=== PATIENT | female | born 1960 | race Two or more races ===

== ENCOUNTER 2023-06-26 09:50 | Outpatient (AMB) | payer OTHER, SELFPAY ==
[2023-06-26 10:04] VITALS: BP 130/70; BMI 26.8
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
== END 2023-06-26 11:19 | disposition home or self-care (01) ==
PROVIDERS: PCP Internal Medicine; Visit Provider Nurse Practitioner Family
DX: R51.9 Headache, unspecified (principal); R51.0 Headache with orthostatic component, not elsewhere classified; H93.19 Tinnitus, unspecified ear; H53.2 Diplopia; G40.109 Localization-related (focal) (partial) symptomatic epilepsy and epileptic syndromes with simple partial seizures, not intractable, without status epilepticus; G47.9 Sleep disorder, unspecified; G25.81 Restless legs syndrome; R53.83 Other fatigue; R06.83 Snoring; R06.81 Apnea, not elsewhere classified
CPT/HCPCS: 99204

== ENCOUNTER → 2023-06-26 09:50 | Outpatient (BNVA) | payer OTHER, SELFPAY | PROVIDERS: PCP Internal Medicine; Visit Provider Nurse Practitioner Family | DX: G40.109 Localization-related (focal) (partial) symptomatic epilepsy and epileptic syndromes with simple partial seizures, not intractable, without status epilepticus (principal); R51.0 Headache with orthostatic component, not elsewhere classified; H93.19 Tinnitus, unspecified ear; H53.2 Diplopia; G47.9 Sleep disorder, unspecified; G25.81 Restless legs syndrome; R53.83 Other fatigue; R06.83 Snoring; R06.81 Apnea, not elsewhere classified | CPT/HCPCS: 99202 ==

== ENCOUNTER → 2023-09-10 14:13 | Outpatient (REF) | payer OTHER, SELFPAY | LOC: HO.SL 14:13 | PROVIDERS: PCP Internal Medicine; Visit Provider Nurse Practitioner Family | DX: R06.83 Snoring (principal); G25.81 Restless legs syndrome; R53.83 Other fatigue; R40.0 Somnolence; R06.81 Apnea, not elsewhere classified | CPT/HCPCS: 95806 ==

== ENCOUNTER → 2023-09-10 14:38 | Outpatient (BNV) | payer OTHER, SELFPAY | PROVIDERS: PCP Internal Medicine; Visit Provider Psychiatry & Neurology Neurology | DX: R06.83 Snoring (principal) | CPT/HCPCS: 95806 ==

== ENCOUNTER 2023-09-16 09:16 | Outpatient (REF) | payer OTHER, SELFPAY ==
--- NOTE | ~2023-09-16 | MR_ITS ---
EXAMINATION: MR BRAIN WITH AND WITHOUT CONTRAST CLINICAL INFORMATION: Headache, double vision, new onset clicking in the bilateral ears COMPARISON: None. TECHNIQUE: MRI of the brain was obtained using routine sequences before and following administration of intravenous contrast. A total of 6.5 mL of Gadavist was administered intravenously. FINDINGS: No acute infarct. The GRE sequence is without susceptibility artifact to suggest acute or chronic blood products. No extra-axial fluid collection. The ventricles and sulci are normal in size and configuration without significant volume loss or hydrocephalus. A few scattered T2 FLAIR hyperintense foci in the subcortical and periventricular white matter, nonspecific but presumably mild chronic microangiopathy. Linear enhancement in the left parietal subcortical white matter presumably reflective of a developmental venous anomaly. No significant mass effect or herniation pattern. The intracranial arterial flow voids are preserved. Partially empty sella. Suspected small bilateral petrous apex cephaloceles and suggestion of distal transverse sinus stenosis bilaterally. The orbits are grossly unremarkable. Mild to moderate ethmoid air cell mucosal thickening. No mastoid effusion. Normal marrow signal. The bilateral temporomandibular joints appear grossly unremarkable. Partially imaged cervical spondylosis, with multilevel disc osteophytes/protrusions at C3-C4, C4-C5, and C5-C6 contributing to spinal canal narrowing and suspected mass effect along the ventral cord. MR/MR head/brain wo/w con IMPRESSION: 1. No acute intracranial abnormality. 2. Partially empty sella, suspected small bilateral petrous apex cephaloceles, and suggestion of distal transverse sinus stenosis bilaterally, the latter which is poorly assessed on this examination and would be better evaluated on 3D T1-weighted postcontrast sequences and/or MR venogram as clinically warranted. Findings can be correlated clinically for idiopathic intracranial hypertension/pseudotumor cerebri.
[2023-09-16] MEDS: gadobutroL 7.5 ML VIAL IVPUSH (10:17)
== END 2023-09-16 09:17 | disposition home or self-care (01) ==
LOC: HO.MRI 09:16
PROVIDERS: PCP Internal Medicine; Visit Provider Nurse Practitioner Family
DX: R51.0 Headache with orthostatic component, not elsewhere classified (principal)
CPT/HCPCS: 70553; A9585

== ENCOUNTER 2023-09-25 08:38 | Outpatient (AMB) | payer OTHER, SELFPAY ==
--- NOTE | 2023-09-25 09:53 | A.OFFVIS_ITS ---
Vital Signs 09/25/23 09:54 Height 5 ft 1 in Weight 136 lb 8 oz BMI 25.8 BP 114/72 Blood Pressure Location Rt brachial Position Sitting Pulse 89 Pulse Source Pulse Oximeter Pulse Oximetry (%) 99 Oxygen Delivery Method Room Air Intake Visit Reasons: 3 mo follow up- Confirmed Intake Note: Patient presents for 3 month follow up. patient has been having simple little headaches but she feels it's when her sugars are low. Allergies No Known Allergies Allergy (Verified 09/25/23 09:56) Medication List - Last Reconciled 10/28/23 by LOR Montes albuterol sulfate 90 mcg/actuation inhalation cetirizine 10 mg PO DAILY fluticasone propionate 110 mcg/actuation (Flovent HFA) inhalation lancets (FreeStyle Lancets) As directed lovastatin 40 mg PO DAILY magnesium oxide 400 mg PO BEDTIME 30 days metformin 500 mg PO BID naproxen 500 mg PO BID PRN 30 days MDD 2 tabs riboflavin (vitamin B2) 400 mg PO DAILY 30 days topiramate 25 - 50 mg (1 - 2 x 25 mg) PO BID 30 days tramadol 50 mg PO BID PRN HPI Comments Details: 63-yr-old female presents for f/u visit. Pt reports she had Covid-19 in May. Her 1st s/s was syncope- fell and sustained nasal Fx and tooth Fx. Some of her upper teth have been removed. She is on a soft diet. Has lost apporx 10 lbs. She is waiting to receive dentures. Overall she is feeling better, but having decreased energy. Started B2 and Mag- which seem to help. Does have blurry vision during headaches. She is now noticing headaches when she is late taking her metformin and her BG is > 140. She may wait to take her metformin, if she wakes up shaky). Once she takes metformin, the headache subsides. Other using Naproxen 3-4 x's per month for headache, which helps. Baseline headache characteristics: [id number], Throbbing bilateral forehead, temporal, retro-orbital, hagen pad, occipital, neck pain a/w Milder headache is more often in the temples and is associated with photophobia and phonophobia but not nausea or vomiting. More moderate headache is associated with photophobia, phonophobia, dizziness, blurry vision, difficulty concentrating, red eye associated with whooshing tinnitus when lying down. 09/13/23, HST: AHI 3.1/hr, O2 naidr 82 % (SpO2 < 90% x's 5.4 min, < 88% x's 1 min, avergae SpO2 93%). 09/16/23, MR/MR head/brain wo/w con: IMPRESSION: 1. No acute intracranial abnormality. 2. Partially empty sella, suspected small bilateral petrous apex cephaloceles, and suggestion of distal transverse sinus stenosis bilaterally, the latter which is poorly assessed on this examination and would be better evaluated on 3D T1-weighted postcontrast sequences and/or MR venogram as clinically warranted. Findings can be correlated clinically for idiopathic intracranial hypertension/pseudotumor cerebri. PFSH Surgical History H/O tubal ligation Family History Mother Diabetes HTN (hypertension) Hyperlipidemia Father Stroke Social History Alcohol intake: never Patient Tobacco Use Status: Never used Tobacco Physical Exam Vital Signs: Last Vital Signs Pulse 89 09/25/23 09:54 BP 114/72 09/25/23 09:54 Pulse Ox 99 09/25/23 09:54 Oxygen Delivery Method Room Air 09/25/23 09:54 BMI result Body Mass Index 25.8 Const General: cooperative and no acute distress Orientation/consciousness: patient oriented x3 Resp Effort & Inspection: normal respiratory effort and able to speak in complete sentences Neuro General: patient oriented x3 Cranial nerves: Yes CN's II-XII intact bilaterally Cognition (Neuro): normal cognition Psych Appearance: grossly normal Mental Status: mental status grossly normal Speech and movement: Normal speech and movement present Affect: normal affect Attitude: cooperative Assessment & Plan Assessment & Plan (1) Migraine without aura: Code(s): G43.009 - Migraine without aura, not intractable, without status migrainosus Category: Medical (2) Diabetes mellitus, type II: Code(s): E11.9 - Type 2 diabetes mellitus without complications Category: Medical (3) Unintentional weight loss: Code(s): R63.4 - Abnormal weight loss Category: Medical Plan Reviewed brain MRI w/wo- No acute abnormalities. However, signs suggestive of IIH: partially empty sella, suspected small bilateral petrous apex cephaloceles, and suggestion of distal transverse sinus stenosis bilaterally, Pt does haveh/o IIH Pt advised to undergo brain MRV w/wo- to assess for transverse sinus stenosis. Advised pt to undergo LP to assess OP- pt declined LP, as in the past has caused low pressure LYNN Pt previously did not tolerate daimox Restart topiramate- now states, she did not not tolerate it, but only stopped it as she thought she was on too many pain meds Explained that topiramate is to reduce IIH and to reduce risk for irreversible vision loss Will request recent notes from [facility] and [facility] Future considerations: LP and CSF studies. Reviewed HST- no evidence for sleep apnea. For overall headache management: Continue to optimizegood self-care, including but not limited to maintaining a healthy diet, adequate fluid intake, adequate sleep, and engaging in regular physical activity. Will initiate an order for daily MVI and Glucerna supplement d/t recent weight loss r/t loss of front teeth- as not eating is contributing to her migraine burden. For headache triggers: Track headaches, especially after any treatment regimen changes. Migraine [employer] is one of many headache tracking apps. For acute headache treatment: Discussed importance of taking acute medications at the first sign of headache, however stressed importance of avoiding acute medication overuse (especially w ith combined headache medications). May continue naproxen 500 mg b.i.d. as needed Previous acute migraine medication trials: None other Acute migraine medication contraindications: None at this time For headache prevention medication: Riboflavin 400mg qam Magnesium 400mg qhs Previous migraine prevention medication trials: Gabapentin: Was not effective after greater than 8 weeks. Migraine prevention medication contraindications: Beta-blockers due to asthma diagnosis. Pt to follow-up in 3 months or sooner prn. Coding Level of Care Code Est Pt Level 4 (60690) Diagnoses Migraine without aura G43.009 Diabetes mellitus, type II E11.9 Unintentional weight loss R63.4
[2023-09-25 09:54] VITALS: BP 114/72; PULSE 89; O2SAT 99; BMI 25.8
== END 2023-09-25 10:28 | disposition home or self-care (01) ==
PROVIDERS: PCP Internal Medicine; Visit Provider Nurse Practitioner Family
DX: G43.009 Migraine without aura, not intractable, without status migrainosus (principal); E11.9 Type 2 diabetes mellitus without complications; R63.4 Abnormal weight loss
CPT/HCPCS: 99214

== ENCOUNTER → 2023-09-25 08:38 | Outpatient (BNVA) | payer OTHER, SELFPAY | PROVIDERS: PCP Internal Medicine; Visit Provider Nurse Practitioner Family | DX: G43.009 Migraine without aura, not intractable, without status migrainosus (principal); E11.9 Type 2 diabetes mellitus without complications; R63.4 Abnormal weight loss | CPT/HCPCS: 99212 ==

== ENCOUNTER → 2024-03-03 10:08 | Outpatient (BNV) | payer OTHER, SELFPAY | PROVIDERS: PCP Internal Medicine; Visit Provider Radiology Diagnostic Radiology | DX: R51.0 Headache with orthostatic component, not elsewhere classified (principal) | CPT/HCPCS: 70546 ==

== ENCOUNTER 2024-03-03 10:12 | Outpatient (REF) | payer OTHER, SELFPAY ==
--- NOTE | ~2024-03-03 | MR_ITS ---
EXAMINATION: MRV the brain with contrast.. CLINICAL INFORMATION: Headache with orthostatic component. TECHNIQUE: MRV brain protocol with contrast. Coronal 2-D [id number]. Sagittal twist. Total of 10 cc of gadolinium given IV without reported immediate complications COMPARISON: No priors. Correlated to MRI brain dated September 16, 2023. FINDINGS: Superior sagittal sinus, transverse and sigmoid sinuses and jugular bulbs, internal cerebral veins, vein of Wild, straight sinus demonstrated no flow signal abnormality, intraluminal filling defects or focal stenosis. Dominant right transverse and sigmoid sinuses and jugular bulbs. Dominant right internal jugular vein. MR/MR venography head wo/w con IMPRESSION: No main cerebral venous sinus thrombosis. Negative exam. Electronically signed by: Wiliam Rodriguez MD 04/08/2024 07:41 AM EDT
[2024-03-03] MEDS: gadobutroL 10 ML VIAL IVPUSH (10:53)
== END 2024-03-03 10:13 | disposition home or self-care (01) ==
LOC: HO.MRI 10:12
PROVIDERS: PCP Internal Medicine; Visit Provider Nurse Practitioner Family
DX: G93.2 Benign intracranial hypertension (principal); R51.0 Headache with orthostatic component, not elsewhere classified
CPT/HCPCS: 70546; A9585

== ENCOUNTER 2024-03-31 09:03 | Outpatient (AMB) | payer OTHER, SELFPAY ==
--- NOTE | 2024-03-31 09:23 | A.OFFVIS_ITS ---
Vital Signs 03/31/24 09:24 Height 5 ft 1 in Weight 125 lb BMI 23.6 BP 126/82 Blood Pressure Location Rt brachial Position Sitting Intake Visit Reasons: Follow up Intake Note: Patient presents for follow up Allergies No Known Allergies Allergy (Verified 03/31/24 09:27) Medication List - Last Reconciled 03/31/24 by LOR Montes albuterol sulfate 90 mcg/actuation inhalation cetirizine 10 mg PO DAILY fluticasone propionate 110 mcg/actuation (Flovent HFA) inhalation lancets (FreeStyle Lancets) As directed lovastatin 40 mg PO DAILY magnesium oxide 400 mg PO BEDTIME 30 days metformin 500 mg PO BID nb-eoj-laphf-calcium carb-K1 400 mcg-500 mg calcium-20 mcg (One Daily Women 50 Plus(Vit K)) 1 tab PO DAILY 30 days naproxen 500 mg PO BID PRN 30 days MDD 2 tabs nut.tx.gluc.intol,lac-free,soy (Glucerna Hunger Smart oral liquid) Drink one 10 ounce bottle orally BID; 30 days riboflavin (vitamin B2) 400 mg PO DAILY 30 days topiramate 25 - 50 mg (1 - 2 x 25 mg) PO BID 30 days tramadol 50 mg PO BID PRN HPI Comments Details: 63-yr-old female presents for f/u visit. Overall pt reports she is feeling better, but having decreased energy. Family is trying to encourage her to come out of the house and spend time with her family. She is trying to eat better, but it is difficult to maintain her weight and her blood sugars. Glucerna helps- but can have difficulty picking it up d/t insurance coverage- asks that we fax the order to [facility]. Pt's vision is stable. Eye exam did not show papilledema. Denies tinnitus, positional headache. Pt states her headaches are better overall. Now having 1-2 headache days per week- often triggered by stress- often due to her Compliant w/ B2 and Mag. Taking Topiramate 50mg qam, and extra 25-50mg qhs and Naproxen when she has a headache. Baseline headache characteristics: [id number], Throbbing bilateral forehead, temporal, retro-orbital, hagen pad, occipital, neck pain a/w Milder headache is more often in the temples and is associated with photophobia and phonophobia but not nausea or vomiting. More moderate headache is associated with photophobia, phonophobia, dizziness, blurry vision, difficulty concentrating, red eye associated with whooshing tinnitus when lying down. Previous work-up: 09/13/23, HST: AHI 3.1/hr, O2 naidr 82 % (SpO2 < 90% x's 5.4 min, < 88% x's 1 min, average SpO2 93%). 09/16/23, MR/MR head/brain wo/w con: IMPRESSION: 1. No acute intracranial abnormality. 2. Partially empty sella, suspected small bilateral petrous apex cephaloceles, and suggestion of distal transverse sinus stenosis bilaterally, the latter which is poorly assessed on this examination and would be better evaluated on 3D T1-weighted postcontrast sequences and/or MR venogram as clinically warranted. Findings can be correlated clinically for idiopathic intracranial hypertension/pseudotumor cerebri. PFSH Surgical History H/O tubal ligation Family History Mother Diabetes HTN (hypertension) Hyperlipidemia Father Stroke Social History Alcohol intake: never Patient Tobacco Use Status: Never used Tobacco Physical Exam Vital Signs: Last Vital Signs BP 126/82 03/31/24 09:24 BMI result Body Mass Index 23.6 Const General: cooperative and no acute distress Orientation/consciousness: patient oriented x3 Resp Effort & Inspection: normal respiratory effort and able to speak in complete sentences Neuro General: patient oriented x3 Cranial nerves: Yes CN's II-XII intact bilaterally Cognition (Neuro): normal cognition Psych Appearance: grossly normal Mental Status: mental status grossly normal Speech and movement: Normal speech and movement present Affect: normal affect Attitude: cooperative Assessment & Plan Assessment & Plan (1) Migraine without aura: Code(s): G43.009 - Migraine without aura, not intractable, without status migrainosus Category: Medical (2) Unintentional weight loss: Code(s): R63.4 - Abnormal weight loss Category: Medical Plan For h/o IIH: Review Brain MRV when available. Brain MRI w/wo- No acute abnormalities. However, signs suggestive of IIH: partially empty sella, suspected small bilateral petrous apex cephaloceles, and suggestion of distal transverse sinus stenosis bilaterally, Pt does have h/o IIH Previously advised pt to undergo LP to assess OP- pt declined LP, as in the past has caused low pressure LYNN. will revisit upon review of MRV. Pt previously did not tolerate daimox Continue topiramate 50mg qam and prn 50mg qhs. Reviewed [facility]- no s/s papilledema. HST- no evidence for sleep apnea. Future considerations: LP and CSF studies. For overall headache management: Continue to optimize good self-care, including but not limited to maintaining a healthy diet, adequate fluid intake, adequate sleep, and engaging in regular physical activity. Advised to continue daily MVI and Glucerna supplement d/t recent weight loss r/t loss of front teeth- as not eating contributes to her migraine burden. Pt asks order be faxed to- [facility], . For headache triggers: Track headaches, especially after any treatment regimen changes. Migraine [employer] is one of many headache tracking apps. For acute headache treatment: Discussed importance of taking acute medications at the first sign of headache, however stressed importance of avoiding acute medication overuse (especially with combined headache medications). May continue naproxen 500 mg b.i.d. as needed Previous acute migraine medication trials: None other Acute migraine medication contraindications: None at this time For headache prevention medication: Riboflavin 400mg qam Magnesium 400mg qhs Continue topiramate 50mg qam and prn 50mg qhs. Previous migraine prevention medication trials: Gabapentin: Was not effective after greater than 8 weeks. Migraine prevention medication contraindications: Beta-blockers due to asthma diagnosis. Pt to follow-up in 6 months or sooner prn. Medications: Refilled nut.tx.gluc.intol,lac-free,soy (Glucerna Hunger Smart oral liquid) Drink one 10 ounce bottle orally BID; 30 days 20,400 mL 6RF E11.9 - Type 2 diabetes mellitus without complications, R63.4 - Abnormal weight loss nut.tx.gluc.intol,lac-free,soy (Glucerna Hunger Smart oral liquid) Drink one 10 ounce bottle orally BID; 20,400 mL 6RF 30 days E11.9 - Type 2 diabetes mellitus without complications, R63.4 - Abnormal weight loss riboflavin (vitamin B2) 400 mg PO DAILY 30 tabs 6RF 30 days topiramate 25 - 50 mg (1 - 2 x 25 mg) PO BID 120 tabs 3RF 30 days G93.2 - Benign intracranial hypertension magnesium oxide may hold for loose stools 400 mg PO BEDTIME 30 tabs 6RF 30 days Coding Level of Care Code Est Pt Level 4 (12141) Diagnoses Migraine without aura G43.009 Unintentional weight loss R63.4
[2024-03-31 09:24] VITALS: BP 126/82; BMI 23.6
== END 2024-03-31 10:18 | disposition home or self-care (01) ==
PROVIDERS: PCP Internal Medicine; Visit Provider Nurse Practitioner Family
DX: G43.009 Migraine without aura, not intractable, without status migrainosus (principal); R63.4 Abnormal weight loss
CPT/HCPCS: 99214

== ENCOUNTER → 2024-03-31 09:03 | Outpatient (BNVA) | payer OTHER, SELFPAY | PROVIDERS: PCP Internal Medicine; Visit Provider Nurse Practitioner Family | DX: G43.009 Migraine without aura, not intractable, without status migrainosus (principal); R63.4 Abnormal weight loss | CPT/HCPCS: 99212 ==

== ENCOUNTER 2024-10-21 09:23 | Outpatient (AMB) | payer OTHER, SELFPAY ==
--- OUTSIDE RECORDS SUMMARY | 2024-10-21 09:58 | XMS_ITS | Clinical Summary ---
Author Organization [facility] Address [address] [place] [phone] Phone Care Team Providers Care [employer] Name Role Phone Simona Finney MD Primary Care Provider [phone] Allergies Active Allergy Reactions Criticality Noted Date Comments Budesonide-Formoterol 10/05/2015 Medications cetirizine (ZyrTEC) 10 mg tablet Take 1 tablet (10 mg total) by mouth 1 (one) time each day. 02/23/20 24 Active lovastatin (MEVACOR) 40 mg tablet TAKE 1 TABLET BY MOUTH AT BEDTIME 02/23/20 24 Active topiramate (TOPAMAX) 25 mg tablet TAKE 1-2 TABLETS BY MOUTH TWICE A DAY 10/03/19 24 Active fluticasone HFA (FLOVENT HFA) 110 mcg/actuation inhaler Inhale 1 Puff into the lungs 2 times daily for 180 days. 10/17/19 24 Active multivitamin (MULTIPLE VITAMINS ORAL) Take by mouth. Active blood sugar diagnostic (FreeStyle Lite Strips) test strip Use to test blood sugar twice a day 100 each 2 04/22/20 24 Active blood-glucose meter kit Use twice daily to test blood sugar 1 each 04/22/20 24 Active fluticasone propionate (FLONASE) 50 mcg/actuation nasal spray Administer 2 sprays into each nostril 1 (one) time each day. Shake gently. Before first use, prime pump. After use, clean tip and replace cap. 16 g 5 06/07/20 24 Active naproxen (NAPROSYN) 500 mg tablet Take 1 tablet (500 mg total) by mouth 1 (one) time each day. Active traMADoL (ULTRAM) 50 mg tablet Take by mouth 1 (one) time each day. Active magnesium oxide (MAG-OX) 400 mg magnesium tablet Take 1 tablet (400 mg total) by mouth 1 (one) time each day. Active riboflavin (VITAMIN B2) 50 mg tablet tablet Take 1 tablet (50 mg total) by mouth 1 (one) time each day. Active metFORMIN (GLUCOPHAGE) 500 mg tablet Take 1 Tablet by mouth 2 times daily (with meals). 180 tablet 08/21/19 25 Active lancets lancets Use to test blood sugar twice daily 300 each 09/21/19 25 Active albuterol HFA (PROAIR HFA ; PROVENTIL HFA ; VENTOLIN HFA) 90 mcg/actuation inhaler INHALE 2 PUFFS INTO THE LUNGS EVERY 4 HOURS NEEDED FOR COUGH OR WHEEZING 8.5 g 2 10/21/19 25 Active albuterol HFA (PROAIR HFA ; PROVENTIL HFA ; VENTOLIN HFA) 90 mcg/actuation inhaler INHALE 2 PUFFS INTO THE LUNGS EVERY 4 HOURS NEEDED FOR COUGH OR WHEEZING 8.5 g 09/02/19 25 025 Discontinued Active Problems Problem Noted Date Diagnosed Date Migraine 12/25/2016 Overview (03/31/2024): Saw Dr. Wade on 12/23/16, MRI and MRV of brain at [facility] in September 2013 showed mild nonspecific white matter changes, MRV was okay. Continue naproxen for migraine. Recurrent major depressive disorder ([facility] V24 ) 05/10/2016 Overview (03/31/2024): Declines medication, sees counselor Diabetes mellitus without co mplication ([facility] V24, [facility] V28) 07/21/2013 Assessment & Plan (04/29/2024 10:14 AM EST): Diabetic diet discussed. Will monitor A1c. For now continue metformin. Orders: Hemoglobin A1c; Future Asthma 02/18/2013 Arthralgia 10/06/2012 Overview (03/31/2024): Dr el rheum Backache 10/06/2012 GERD (gastroesophageal reflux disease) 3 Hyperlipidemia 10/06/2012 Overview (03/31/2024): Previous [facility] medical Assessment & Plan (04/29/2024 10:14 AM EST): Follow low-cholesterol diet. Continue lovastatin. Pseudotumor cerebri 10/06/2012 Overview (03/31/2024): [facility], pseudotumor cerebri controoled on topamax. No retinopathy Saw Dr. Wade on 12/23/16, MRI and MRV of brain at [facility] in September 2013 showed mild nonspecific white matter changes, MRV was okay. Continue naproxen for migraine. Dr navarrete-neuro Dr beard eyes normal mri Seasonal allergies 10/06/2012 Encounters Date Type Department Care Team Description 08/09/2024 10:45 AM EST Office Visit [facility] Hematology Oncology [address] [place] [address] Carol Meraz PA Thrombocytosis (Primary Dx) from Last 3 Months Immunizations Name Administration Dates Next Due Influenza Quadravalent, MDCK , 0.5ml, preservative free (Flucelvax) 6mo and older 03/12/2023,04/05/2022,04/19/2020,08/03 Influenza trivalent, MDCK, 0 .5mL, preservative free (Flucelvax) 6mo and older 04/29/2024 MMR, measles mumps and rubel la Live (Priorix; M-M-R II) 12mo and older 04/28/1997 PPD Test 10/02/2011 Pfizer SARS-CoV-2 COVID-19, mRNA, LNP-S, preservative free 03/02/2021,02/09/2021 Pneumococcal polysaccharide 23 valent (Pneumovax 23) 2yo and older 12/02/2013 Tdap Tetanus diptheria acell ular pertussis (Boostrix; Adacel) 7yo and older 10/17/2023 Surgical History Surgery Date Site/Laterality Comments COLONOSCOPY 01/17/13 PROCEDURE: HISTORICAL COLONOSCOPY; COMMENT: adenoma; repeat in 5 yrs BREAST BIOPSY Right PROCEDURE: BX BREAST; PERC NEEDLE CORE W/IMAG GUID; COMMENT: benign LIPOMA RESECTION PROCEDURE: SKIN TISSUE EXCISION(LIPOMA) Medical History Medical History Date Comments Type II or unspecified type diabetes mellitus with unspecified complication, not stated as uncontrolled DX:Type II or unspecified t ype diabetes mellitus with unspecified complication, not stated as uncontrolled Esophageal reflux DX:Esophageal reflux Recurrent major depressive d isorder ([facility]/HCC V24) 05/10/2016 DX:Recurrent major depressiv e disorder (HCC) Migraine 12/25/2016 DX:Migraine Hyperlipidemia 10/06/2012 DX:Hyperlipidemi a; COMMENT: Previous [facility] Pseudotumor cerebri 10/06/2012 DX:Pseudotum or cerebri; COMMENT: Melvin Hua from [facility], pseudotumor cerebri controoled on topamax. No retinopathy Saw Dr. Wade on 12/23/16, MRI and MRV of brain at [facility] in September 2013 showed mild nonspecific white matter changes, MRV was okay. Continue naproxen for migraine. Dr navarrete-neuro Dr beard eyes normal mri Asthma 02/18/2013 DX:Asthma Depression Prolapsed uterus Family History Medical History Relation Name Comments Diabetes Brother 5 arthritis, asth ma Stroke Brother 5 Heart attack Father CAD, diabetes, HTN Cataracts Mother Dementia Heart attack Mother Diabetes Sister 5 Blindness Neg Hx glaucoma, macul ar degeneration, strabismus Breast cancer Neg Hx Colon cancer Neg Hx Ovarian cancer Neg Hx Relation Name Status Comments Brother 5 Father Mother Sister 5 Alive Social History Tobacco Use Types Packs/Day Years Used Date Smoking Tobacco: Former Cigarettes Q uit: 06/09/1989 Smokeless Tobacco: Never Tobacco Cessation:Counseling Given: Not Answered Alcohol Use Standard Drinks/Week Comments No 0 (1 standard drink = 0.6 oz pur e alcohol) Comments Unknown Sex and Gender Information Value Date Recorded Sex Assigned at Not on file Legal Sex Female 2:19 AM EST Gender Identity Not on file Sexual Orientation Not on file Obstetrics History Last Filed Vital Signs Vital Sign Reading Time Taken Comments Blood Pressure 136/46 08/09/2024 10:22 AM EST Pulse 90 08/09/2024 10:22 AM EST Temperature 36.7 ??C (98 ??F) 08/09/2024 10:22 AM EST Respiratory Rate - - Oxygen Saturation 99% 08/09/2024 10:22 AM EST Inhaled Oxygen Concentration - - Weight 59 kg (130 lb) 08/09/2024 10:22 AM EST Height 154.9 cm (5' 1 ) 07/08/2024 11:04 AM EST Body Mass Index 24.56 07/08/2024 11:04 AM EST Plan of Treatment Upcoming Encounters Date Type Department Care Team (Late st Contact Info) Description 10/22/2024 1:45 PM EDT Appointment [facility] [address] [place] [phone] 12/16/2024 10:00 AM EDT Office Visit Urogynecology - [address] [phone] Shirley Patiño MD [address] [place] [address] [address] [place] [address] 02/15/2025 1:00 PM EDT Office Visit Internal Medicine - [facility] [address] [place] [phone] Simnoa Finney MD [address] [place] [address] Health Maintenance Due Date Last Done Comments Zoster Vaccines (1 of 2) 2009 Pneumococcal Vaccine: 50+ Years (2 of 2 - PCV) 12/02/2014 12/02/2013 Pneumococcal Vaccine: Pediatrics (0 to 5 Years) and At-Risk Patients (6 to 64 Years) (2 of 2 - PCV) 12/02/2014 12/02/2013 RSV Immunization Adult Patients (1 - Risk 60-74 years 1-dose series) 2019 Medicare Annual Wellness Visit 05/18/2022 Osteoporosis Screening (Bone Density Screening) 05/18/2022 Social Influencers of Health Screening 05/18/2022 Diabetes: Annual Urine Albumin-Creatinine Ratio (uACR) 05/19/2022 04/12/2021 COVID-19 Vaccine ( season) 2024 03/02/2021, 02/09/2021 Falls Risk Assessment 2024 Depression Screening 10/16/2024 10/17/2023 Diabetes: Annual Foot Exam 10/16/2024 10/17/2023 Diabetes: Blood Sugar Control Test (HGBA1C) 11/02/2024 05/05/2024, 10/17/2023, 10/17/2023 Colorectal Cancer Screening: Colonoscopy 01/17/2025 01/18/2020 Diabetes: Annual Retina Eye Exam 01/20/2025 01/21/2024 Breast Cancer Screening 04/17/2025 04/17/20 23, 04/17/2023, 11/22/2021, Additional history exists Diabetes: Annual GFR (Glomerular Filtration Rate) 05/05/2025 05/05/2024, 10/17/2023, 10/17/2023 Cervical Cancer Screening: HPV 11/20/2026 11/20/2021 Cholesterol Screening (Lipid Panel) 10/16/2028 10/17/2023, 10/17/2023 DTaP,Tdap,and Td Vaccines (2 - Td or Tdap) 10/16/2033 10/17/2023 MMR Vaccines Aged Out 04/28/1997 No longer eligi ble based on patient's age to complete this topic Hepatitis C Screening Completed 02/18/2013 Influenza Vaccine Completed 04/29/2024, , 04/05/2022, Additional history exists HIB Vaccines Aged Out No longer eligi ble based on patient's age to complete this topic HPV Vaccines Aged Out No longer eligi ble based on patient's age to complete this topic Hepatitis A Vaccines Aged Out No long er eligible based on patient's age to complete this topic Hepatitis B Vaccines Aged Out No long er eligible based on patient's age to complete this topic IPV Vaccines Aged Out No longer eligi ble based on patient's age to complete this topic Meningococcal ACWY Vaccine Aged Out N o longer eligible based on patient's age to complete this topic Meningococcal B Vaccine Aged Out No l onger eligible based on patient's age to complete this topic RSV Immunization Patients Under 20 months Aged Out No longer eligible based on patient's age to complete this topic Varicella Vaccines Aged Out No longer eligible based on patient's age to complete this topic Procedures Procedure Name Priority Date/Time Associated Diagnosis Comments THYROXINE FREE Routine 08/09/2024 10:58 AM EST Empty sella ([facility] V24) THYROID STIMULATING HORMONE Routine 08/09/2024 10:58 AM EST Empty sella ([facility] V24) CORTISOL Routine 08/09/2024 10:58 AM EST Empty sella ([facility] V24) INSULIN-LIKE GROWTH FACTOR Routine 08/09/2024 10:58 AM EST Empty sella ([facility] V24) PROLACTIN Routine 08/09/2024 10:58 AM EST Empty sella ([facility] V24) LUTEINIZING HORMONE Routine 08/09/2024 1 0:58 AM EST Empty sella ([facility] V24) FOLLICLE STIMULATING HORMONE Routine 08/09/2024 10:58 AM EST Empty sella ([facility] V24) COMPREHENSIVE METABOLIC PANEL Routine 05/05/2024 9:05 AM EST Weight loss HEMOGLOBIN A1C Routine 05/05/2024 9:05 AM EST Diabetes mellitus without complication ([facility] V24, [facility] V28) DIABETES EYE EXAM Routine 01/21/2024 DEPRESSION SCREENING Routine 10/17/2023 LIPID PANEL Routine 10/17/2023 DIABETES FOOT EXAM Routine 10/17/2023 GEORGE SCREENING DIGITAL Routine 04/17/2023 3:16 PM EST Encounter for screening mammogram for malignant neoplasm of breast HM HPV Routine 11/20/2021 HM URINE ALBUMIN CREATININE RATIO Routine 04/12/2021 HM COLONOSCOPY Routine 01/18/2020 HEPATITIS C SCREENING Routine 02/18/2013 from Last 3 Months or Most Recently Relevant to Health Maintenance Results * Prolactin (08/09/2024 10:58 AM EST) Pathologist [facility] Prolactin 8.00 See Comment ng/mL LAB CHEMISTRY METHOD 08/09/2024 1:36 PM EST [facility] Comment: Prolactin Reference Ranges (ng/mL) ??Non ?2.2 - ??30.3 ? 8.1 - 347.6 ??Postmenopausal 0.7 - ??31.5 Blood Venous blood specimen / Unknown Venipuncture / Unknown 08/09/2024 10:58 AM EST 08/09/2024 12:38 PM EST García Jay MD LAB BLOOD ORDERABLES Final Resul t Performing Organization Address City/State/[facility] Co de Phone Number [facility]) [facility] [address] [place] [address], [place] [phone] * Insulin-like growth factor (08/09/2024 10:58 AM EST) Insulin-like Growth Factor 1 85 57 - 202 ng/mL 08/12/2024 7:37 PM EST [facility] Comment: Test performed at [facility], [address] [place], [place] ??[address] ? [phone] Latoya Lozano MD, PhD - Aircraft Machin[employer] Blood Venous blood specimen / Unknown Venipuncture / Unknown 08/09/2024 10:58 AM EST 08/09/2024 12:38 PM EST García Jay MD LAB BLOOD ORDERABLES Final Resul t [facility] [address] [place] [address] * Thyroid stimulating hormone (08/09/2024 10:58 AM EST) TSH 1.46 0.40 - 4.00 mcIU/mL LAB CHEMISTRY METHOD 08/09/2024 1:15 PM EST [facility] Blood Venous blood specimen / Unknown Venipuncture / Unknown 08/09/2024 10:58 AM EST 08/09/2024 12:38 PM EST us García Jay MD LAB BLOOD ORDERABLES Final Resul t Performing Organization Address [facility] Co de Phone Number [facility] [address] [place] [address], [place] [phone] * Thyroxine free (08/09/2024 10:58 AM EST) Free T4 1.28 0.70 - 1.80 ng/dL LAB CHEMISTRY METHOD 08/09/2024 1:15 PM EST [facility] Blood Venous blood specimen / Unknown Venipuncture / Unknown 08/09/2024 10:58 AM EST 08/09/2024 12:38 PM EST us García Jay MD LAB BLOOD ORDERABLES Final Resul t Performing Organization Address City/[facility]/ZIP Co de Phone Number [facility] [address] [place] [address], [place] [phone] * Luteinizing hormone (08/09/2024 10:58 AM EST) Luteinizing Hormone 31.4 See Comment mIU/mL LAB CHEMISTRY METHOD 08/09/2024 1:36 PM EST [facility] Blood Venous blood specimen / Unknown Venipuncture / Unknown 08/09/2024 10:58 AM EST 08/09/2024 12:38 PM EST Narrative [facility] - 08/09/2024 1:36 PM EST LH REFERENCE RANGES (MIU/ML) FEMALES NORMALLY MENSTRUATING: FOLLICULAR PHASE ??1.9 - 12.8 MIDCYCLE PEAK ?22.8 - 76.1 LUTEAL PHASE ?0.6 - 13.5 POSTMENOPAUSAL: ON HRT ?1.1 - ??52.4 UNTREATED ? 8.6 - ??61.8 García Jay MD LAB BLOOD ORDERABLES Final Resul t Performing Organization Address City/[facility]/ZIP Co de Phone Number [facility] [address] [place] [address], [place] [phone] * Follicle stimulating hormone (08/09/2024 10:58 AM EST) Follicle Stimulating Hormone 89.6 See Comment mIU/mL LAB CHEMISTRY METHOD 08/09/2024 1:36 PM EST [facility] Comment: FSH REFERENCE RANGES (MIU/ML) FEMALES NORMALLY MENSTRUATING: FOLLICULAR PHASE ??2.3 - 12.6 MIDCYCLE PEAK ? 5.2 - 17.5 LUTEAL PHASE ?1.7 - ??9.5 POSTMENOPAUSAL: ON HRT ?5.9 - ??72.8 UNTREATED ?12.7 - 132.2 Blood Venous blood specimen / Unknown Venipuncture / Unknown 08/09/2024 10:58 AM EST 08/09/2024 12:38 PM EST García Jay MD LAB BLOOD ORDERABLES Final Resul t Performing Organization Address City/[facility]/ZIP Co de Phone Number [facility] [address] [place] [address], [place] [phone] * Cortisol (08/09/2024 10:58 AM EST) Cortisol 8.9 mcg/dL LAB CHEMISTRY METHOD 08/09/2024 1:14 PM EST [facility] Blood Venous blood specimen / Unknown Venipuncture / Unknown 08/09/2024 10:58 AM EST 08/09/2024 12:38 PM EST Narrative [facility] - 08/09/2024 1:14 PM EST CORTISOL REFERENCE RANGE ?? 8 AM SPEC: ??5.0-23.0 mcg/dL ?? 4 PM SPEC: ??3.0-16.0 mcg/dL ?? 8 PM SPEC: ??<5.0 mcg/dL García Jay MD LAB BLOOD ORDERABLES Final Resul t Performing Organization Address [facility]/ZIP Co de Phone Number [facility] [address] [place] [address], [place] [phone] * Hemoglobin A1c (05/05/2024 9:05 AM EST) Hemoglobin A1C 5.1 <6.5 % LAB CHEMISTRY METHOD 05/05/2024 9:32 PM EST [facility] Mean Bld Glu Estim. 100 mg/dL LAB CHEMISTRY METHOD 05/05/2024 9:32 PM EST [facility] Blood Venous blood specimen / Unknown Venipuncture / Unknown 05/05/2024 9:05 AM EST 05/05/2024 9:05 AM EST Simona Finney MD LAB BLOOD ORDERABLES Alyson l Result [facility] [address] [place] [address], [place] [phone] * (ABNORMAL) Comprehensive metabolic panel (05/05/2024 9:05 AM EST) Sodium 142 133 - 145 mmol/L LAB CHEMISTRY METHOD 05/05/2024 3:02 PM [facility] Potassium 4.2 3.5 - 5.5 mmol/L LAB CHEMISTRY METHOD 05/05/2024 3:02 PM [facility] Chloride 109 96 - 110 mmol/L LAB CHEMISTRY METHOD 05/05/2024 3:02 PM [facility] CO2 25 21 - 32 mmol/L LAB CHEMISTRY METHOD 05/05/2024 3:02 PM [facility] Anion Gap 8 3 - 11 LAB CHEMISTRY METHOD 05/05/2024 3:02 PM [facility] Glucose 124(H) 70 - 100 mg/dL LAB CHEMISTRY METHOD 05/05/2024 3:02 PM [facility] BUN 16 5 - 25 mg/dL LAB CHEMISTRY METHOD 05/05/2024 3:02 PM [facility] Creatinine 0.84 0.50 - 1.10 mg/dL LAB CHEMISTRY METHOD 05/05/2024 3:02 PM [facility] eGFR 78 >=60 mL/min/1. 73m2 LAB CHEMISTRY METHOD 05/05/2024 3:02 PM [facility] Comment:Calculation based on the??Chronic Kidney Disease Epidemiology Collaboration (CKD-EPI) equation refit??without adjustment for race. BUN/Creatinine Ratio 19.0 LAB CHEMISTRY METHOD 05/05/2024 3:02 PM [facility] Calcium 9.4 8.5 - 10.5 mg/dL LAB CHEMISTRY METHOD 05/05/2024 3:02 PM [facility] AST (SGOT) 17 10 - 42 unit/L LAB CHEMISTRY METHOD 05/05/2024 3:02 PM [facility] ALT (SGPT) 22 10 - 60 unit/L LAB CHEMISTRY METHOD 05/05/2024 3:02 PM [facility] Alkaline Phosphatase 65 42 - 121 unit/L LAB CHEMISTRY METHOD 05/05/2024 3:02 PM [facility] Total Protein 7.0 6.0 - 8.0 g/dL LAB CHEMISTRY METHOD 05/05/2024 3:02 PM EST [facility] Albumin 4.1 3.2 - 5.0 g/dL LAB CHEMISTRY METHOD 05/05/2024 3:02 PM EST [facility] Total Bilirubin 0.4 0.0 - 1.4 mg/dL LAB CHEMISTRY METHOD 05/05/2024 3:02 PM EST [facility] Blood Venous blood specimen / Unknown Venipuncture / Unknown 05/05/2024 9:05 AM EST 05/05/2024 9:05 AM EST Result [facility] Simona Finney MD LAB BLOOD ORDERABLES Alyson l Result [facility] [address] [place] [address], * Diabetes Eye Exam (01/21/2024) [facility] Diabetes: Annual Retina Eye Exam abstracted Result [facility] Historical Provider HEALTH MAINTENANCE Final Result * Depression Screening (10/17/2023) [facility] Depression Screening abstracted Result [facility] Historical Provider HEALTH MAINTENANCE Final Result * Diabetes Foot Exam (10/17/2023) [facility] Diabetes: Annual Foot Exam abstracted Historical Provider HEALTH MAINTENANCE Final Result * (ABNORMAL) Lipid panel (10/17/2023) [facility] LDL/HDL Ratio 3 0 - 4 Triglycerides 147 0 - 150 mg/dL Cholesterol 216(A) 0 - 200 mg/dL HDL 71 >=40 mg/dL LDL Cholesterol 116(A) 0 - 100 mg/dL Blood Venous blood specimen / Unknown Historical Provider LAB BLOOD ORDERABLES Alyson l Result * GEORGE SCREENING DIGITAL (04/17/2023 3:16 PM EST) Anatomical Region Laterality Modality Mammography 04/17/2023 10:1 2 AM EST Narrative 04/17/2023 3:16 PM EST [facility] Diagnostic Imaging Department [address] [place] [id number] Patient: ??DORA CONRAD ?/Age/Sex: 1960 62 - F Unit#: ??[id number] ? Location/Status: ??SPDIMAM/REG CLI ? Mnemonic/Ordering Site: ??DIGSC/SPMAM Ordering Physician: ??SIMONA FINNEY MD [facility] Screening Digital - 04/17/23 - 1034 Report Status:Signed EXAM: [facility] Screening Digital EXAM DATE AND TIME: 04/17/2023 10:34 AM HISTORY: ??Screening. Previous bilateral breast biopsies, pathology benign. COMPARISON: ??11/22/21, 04/06/20, 02/22/19 TECHNIQUE: Bilateral digital breast tomosynthesis was performed in the CC and MLO projections. Computer aided detection with [employer] 3D 3.1 was employed. TISSUE DENSITY: b. There are scattered areas of fibroglandular density. FINDINGS: No suspicious masses, grouped microcalcifications, or areas of architectural distortion are seen. Scattered microcalcifications and a few benign rim calcifications are without significant change. A biopsy marker is again seen in the lateral right breast. Vascular calcification is noted. The skin is unremarkable. IMPRESSION: Stable mammographic appearance of the breasts. ??No evidence of malignancy is seen. A negative mammogram in the presence of a clinically suspicious palpable abnormality does not preclude the possibility of malignancy or alter the indications for biopsy. BI-RADS: ??Category 2: Benign RECOMMENDATION(S): 1: Routine screening mammogram BILATERAL in 1 year. Dictating Physician: ??PILY MISHRA MD Electronically Signed by: ??PILY MISHRA MD Dic Date/Time: ??04/17/23 1515 Sign date/Time: ??04/17/23 1516 Procedure Note Pily Mishra MD - 07/15/2023 [facility] Diagnostic Imaging Department [address] [place] [address] Patient: CONRADDORA /Age/Sex: 1960 - 62 - F Unit#: [id number] [facility] Mnemonic/Ordering Site[facility] Ordering Physician: SIMONA FINNEY MD [facility] Screening Digital - 04/17/23 - 1034 Report Status:Signed EXAM: [facility] Screening Digital EXAM DATE AND TIME: 04/17/2023 10:34 AM HISTORY: Screening. Previous bilateral breast biopsies, pathologybenign. COMPARISON: 11/22/21, 04/06/20, 9/16/19 TECHNIQUE: Bilateral digital breast tomosynthesis was performed in the CCand MLO projections. Computer aided detection with [employer] ([employer]) 3D 3.1was employed. TISSUE DENSITY: b. There are scattered areas of fibroglandular density. FINDINGS: No suspicious masses, grouped microcalcifications, or areas ofarchitectural distortion are seen. Scattered microcalcifications and a few benign rim calcifications are without significant change. A biopsy marker is againseen in the lateral right breast. Vascular calcification is noted. The skin is unremarkable. IMPRESSION: Stable mammographic appearance of the breasts. No evidence of malignancyis seen. A negative mammogram in the presence of a clinically suspicious palpable abnormality does not preclude the possibility of malignancy or alter the indications for biopsy. BI-RADS: Category 2: Benign RECOMMENDATION(S): 1: Routine screening mammogram BILATERAL in 1 year. Dictating Physician: PILY MISHRA MD Electronically Signed by: PILY MISHRA MD Dic Date/Time: 04/17/23 1515 Sign date/Time: 04/17/23 1516 Result [facility] Simona Finney MD IMG BI PROCEDURES Final R esult * Cervical Cancer Screening: HPV (11/20/2021) [facility] Cervical Cancer Screening: HPV abstracted, negative Result [facility] HEALTH MAINTENANCE Final Result * Urine Albumin Creatinine Ratio (04/12/2021) [facility] Urine Albumin Creatinine Ratio abstracted Result [facility] MAINTENANCE Final Result * Colonoscopy (01/18/2020) [facility] Colonoscopy no interpretation , abstracted Anatomical Region Laterality Modality Other Result [facility] MAINTENANCE Final Result * Hepatitis C Screening (02/18/2013) [facility] Hepatitis C Screening abstracted Result [facility] Provider HEALTH MAINTENANCE Final Result from Last 3 Months or Most Recently Relevant to Health Maintenance Insurance [employer] Member Subscriber Plan / Payer (Ef fective 2017-Present) Name:Dora Conrad Relation to Subscriber:Self Name:Dora Conrad Payer ID:[id number] Group ID:Not on file Type:Not on file Address: [place] [address] [place] [place] [id number] Care Teams [employer] Relationship Specialty Start Date End Date Simona Finney MD [address] [place] [id number] PCP - General Internal Medicine 03/27/16
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
[2024-10-21 10:00] VITALS: BP 130/60; PULSE 102; O2SAT 98; BMI 24.9
== END 2024-10-21 10:46 | disposition home or self-care (01) ==
LOC: HO.HSMS 09:24
PROVIDERS: PCP Internal Medicine; Visit Provider Nurse Practitioner Family
DX: G43.009 Migraine without aura, not intractable, without status migrainosus (principal); G93.2 Benign intracranial hypertension; F41.9 Anxiety disorder, unspecified
CPT/HCPCS: 99214

== ENCOUNTER → 2024-10-21 09:23 | Outpatient (BNVA) | payer OTHER, SELFPAY | PROVIDERS: PCP Internal Medicine; Visit Provider Nurse Practitioner Family | DX: G43.009 Migraine without aura, not intractable, without status migrainosus (principal); G93.2 Benign intracranial hypertension; R00.2 Palpitations; F41.9 Anxiety disorder, unspecified | CPT/HCPCS: 99212 ==

== ENCOUNTER 2025-04-15 09:51 | Outpatient (AMB) | payer OTHER, SELFPAY ==
--- OUTSIDE RECORDS SUMMARY | 2025-04-12 09:30 | XMS_ITS | Encounter Summary ---
Author Organization [facility] Address [address] [place] [address] Care Team Providers Care Electronic Systems Technician Name Role Phone Brittni Escobar MD Primary Care Provider [phone] Reason for Visit * Reason Comments Pre-op Exam No concerns Encounter Details Date Type Department Care Team (Late st Contact Info) Description 04/12/2025 9:30 AM EST Consult Internal Medicine - [facility] [address] [place] [address] Brittni Escobar MD [address] [place] [address] Pre-operative clearance (Primary Dx); Urinary incontinence, unspecified type; Diabetes mellitus without complication (CMS/HCC V24, CMS/HCC V28); Hyperlipidemia, unspecified hyperlipidemia type; Mild asthma, unspecified whether complicated, unspecified whether persistent; Seasonal allergies; Anxiety; Chronic migraine with aura without status migrainosus, not intractable Social History Tobacco Use Types Packs/Day Years Used Date Smoking Tobacco: Former Cigarettes Q uit: 06/09/1989 Smokeless Tobacco: Never Tobacco Cessation:Counseling Given: Not Answered Alcohol Use Standard Drinks/Week Comments No 0 (1 standard drink = 0.6 oz pur e alcohol) Comments No Sex and Gender Information Value Date Recorded Sex Assigned at Not on file Legal Sex Female 2:19 AM EST Gender Identity Not on file Sexual Orientation Not on file documented as of this encounter Last Filed Vital Signs Vital Sign Reading Time Taken Comments Blood Pressure 128/65 04/12/2025 8:58 AM EST Pulse 90 04/12/2025 8:58 AM EST Temperature - - Respiratory Rate - - Oxygen Saturation - - Inhaled Oxygen Concentration - - Weight 56.2 kg (123 lb 14.4 oz) 04/12/2025 8:58 AM EST Height 154.9 cm (5' 1 ) 04/12/2025 8:58 AM EST Body Mass Index 23.41 04/12/2025 8:58 AM EST documented in this encounter Progress Notes * Brittni Escobar MD - 04/12/2025 9:30 AM EST SUBJECTIVE: Dora Conrad is a 64 y.o. female who presents today as a new patient to this provider. Patient is here for preop clearance. Verbal consent obtained for the patient to use LAURA copilot Chief Complaint Patient presents with Pre-op Exam No concerns Patient is not sure about the type of surgery . HPI: History of Present Illness The patient presents for preoperative clearance. Procedure-colopexy vaginal intraperitoneal colporrhaphy anterior posterior suburethral sling cystoscopy / Robotic Hysterectomy with b/l salpingo- oophorectomy under [place] Procedure date 04/25/25 She has been managing diabetes through dietary modifications, including the elimination of junk food, which has resulted in weight loss. She is currently focusing on cholesterol management and plans to incorporate gym workouts into her routine. She reports no fever or chills but notes a decreased appetite, which she attributes to topiramate use. She reports no gastrointestinal issues such as constipation or diarrhea, respiratory distress except during asthma attacks, or dysuria. She is scheduled to see her neurologist on Friday, who prescribed topiramate for her headaches. She has a history of allergies and requires daily cetirizine. She experiences asthma exacerbations and congestion with weather changes but reports being symptom-free today. She uses an inhaler and fluticasone nasal spray as needed. 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 She has received injections for her arthritis, with the last one causing significant discomfort. She takes tramadol for arthritis. Patient follows ortho for her pain meds managment Medications include atorvastatin 80 mg for cholesterol, metformin 500 mg 2 tablets for diabetes, paroxetine 10 mg for mood stabilization, topiramate 25 mg for headaches, cetirizine 10 mg for allergies, fluticasone nasal spray as needed, and magnesium which she is holding until surgery. Diet: Eliminating junk food Alcohol: Does not drink Tobacco: Does not smoke Living Condition: Lives in her daughter's house on the first floor FAMILY HISTORY She has a family history of heart attacks. Current Meds: Current Medications[1] Allergies: Allergies[2] Immunizations: Immunization History Administered Date(s) Administered Influenza Quadravalent, MDCK, 0.5ml, preservative free (Flucelvax) 6mo and older 08/03/2019, 04/19/2020, 04/05/2022, 03/12/2023 Influenza trivalent, MDCK, 0.5mL, preservative free (Flucelvax) 6mo and older 04/29/2024 MMR, measles mumps and rubella Live (Priorix; M-M-R II) 12mo and older 04/28/1997 PPD Test 10/02/2011 [employer] Powertrain SARS-CoV-2 COVID-19, mRNA, LNP-S, preservative free 02/09/2021, 03/02/2021 Pneumococcal polysaccharide 23 valent (Pneumovax 23) 2yo and older 12/02/2013 Tdap Tetanus diptheria acellular pertussis (Boostrix; Adacel) 7yo and older 10/17/2023 Active Problems: Problem List[3] HISTORY: Medical History[4] Surgical History[5] Family History[6] Social History Socioeconomic History Marital status: Spouse name: Not on file Number of children: Not on file Years of education: Not on file Highest education level: Not on file Occupational History Not on file Tobacco Use Smoking status: Former Current packs/day: 0.00 Types: Cigarettes Quit date: 06/09/1989 Years since quittin.8 Smokeless tobacco: Never Substance and Sexual Activity Alcohol use: No Drug use: No Sexual activity: Not on file Other Topics Concern Not on file Social History Narrative Lives with daughter and grandaughter.unemployed REVIEW OF SYSTEMS: Review of Systems Constitutional: Negative for activity change, appetite change, chills and fever. HENT: Negative. Respiratory: Negative. Cardiovascular: Negative. Gastrointestinal: Negative. Endocrine: Negative. Genitourinary: Negative. Musculoskeletal: Positive for arthralgias. Skin: Negative. Neurological: Positive for headaches (follows neurology). Hematological: Negative. Psychiatric/Behavioral: Negative. VITAL SIGNS Vitals: 04/12/25 0858 BP: 128/65 Pulse: 90 Weight: 56.2 kg (123 lb 14.4 oz) Height: 1.549 m (61 ) Body mass index is 23.41 kg/m??. Body surface area is 1.54 meters squared. PHYSICAL EXAM: Physical Exam Constitutional: General: She is not in acute distress. Appearance: She is normal weight. She is not ill-appearing, toxic-appearing or diaphoretic. HENT: Head: Normocephalic and atraumatic. Right Ear: Tympanic membrane and ear canal normal. Left Ear: Tympanic membrane and ear canal normal. Mouth/Throat: Mouth: Mucous membranes are moist. Eyes: General: No scleral icterus. Extraocular Movements: Extraocular movements intact. Cardiovascular: Rate and Rhythm: Normal rate and regular rhythm. Pulmonary: Effort: Pulmonary effort is normal. Breath sounds: Normal breath sounds. Abdominal: Palpations: Abdomen is soft. There is no mass. Tenderness: There is no abdominal tenderness. Musculoskeletal: Cervical back: Normal range of motion and neck supple. Right lower leg: No edema. Left lower leg: No edema. Skin: General: Skin is warm and dry. Neurological: General: No focal deficit present. Mental Status: She is alert and oriented to person, place, and time. Cranial Nerves: No cranial nerve deficit. Psychiatric: Mood and Affect: Mood normal. Behavior: Behavior normal. Assessment & Plan 1. Pre-operative clearance 2. Urinary incontinence, unspecified type Disposable underpads 3. Diabetes mellitus without complication ([facility] V24, [facility] V28) 4. Hyperlipidemia, unspecified hyperlipidemia type 5. Mild asthma, unspecified whether complicated, unspecified whether persistent 6. Seasonal allergies 7. Anxiety 8. Chronic migraine with aura without status migrainosus, not intractable 1. Preoperative clearance: - Her A1c levels are within the normal range, indicating well-managed diabetes. - The stress echocardiogram results 04/07/25 were satisfactory, and her EKG readings NSR - She has been advised to continue her current medication regimen and maintain a healthy diet. - A prescription for disposable underpads has been provided, with a quantity of 100 and 5 refills. 2. Hypercholesterolemia: - She is taking atorvastatin 80 mg last week.( Dosage was increased by previous provider in office ) - Her cholesterol levels are being monitored, and she is encouraged to continue the medication and maintain a low-fat diet. 3. Elevated BP - BP acceptable- not on meds - Her stress test results were good. - She has been advised to continue reducing salt intake to manage her blood pressure. 4. Asthma/ rhinitis - Her asthma is well-controlled with cetirizine 10 mg daily and fluticasone nasal spray as needed. She should continue using these medications as prescribed. 5. Arthritis: - She experiences arthritis pain and receives injections for it. - She is currently taking tramadol for pain management. No changes to her arthritis management planwere discussed. 6. Diabetes Mellitus: - Her A1c levels are at goal - She is advised to continue her current diabetes management plan, including her diet and medication regimen. Recent Results (from the past 4 weeks) Hemoglobin A1c Collection Time: 04/05/25 8:54 AM Result Value Ref Range Hemoglobin A1C 5.9 <6.5 % Mean Bld Glu Estim. 123 mg/dL Comprehensive metabolic panel Collection Time: 04/05/25 8:54 AM Result Value Ref Range Sodium 136 133 - 145 mmol/L Potassium 4.2 3.5 - 5.5 mmol/L Chloride 104 96 - 110 mmol/L CO2 29 21 - 32 mmol/L Anion Gap 3 3 - 11 Glucose 107 (H) 70 - 100 mg/dL BUN 13 5 - 25 mg/dL Creatinine 0.75 0.50 - 1.10 mg/dL eGFR 88 >=60 mL/min/1.73m2 BUN/Creatinine Ratio 17.3 Calcium 9.3 8.5 - 10.5 mg/dL AST (SGOT) 16 10 - 42 unit/L ALT (SGPT) 24 10 - 60 unit/L Alkaline Phosphatase 60 42 - 121 unit/L Total Protein 7.2 6.0 - 8.0 g/dL Albumin 4.0 3.2 - 5.0 g/dL Total Bilirubin 0.4 0.0 - 1.4 mg/dL Lipid panel with reflex to direct LDL Collection Time: 04/05/25 8:54 AM Result Value Ref Range Cholesterol 317 (H) 0 - 200 mg/dL Triglycerides 108 0 - 150 mg/dL HDL 73 >=40 mg/dL LDL Calculated 222 (H) 0 - 100 mg/dL VLDL Cholesterol Valentín 21.6 mg/dL Non HDL Chol. (LDL+VLDL) 244 (H) <145 mg/dL Chol/HDL Ratio 4.3 0.0 - 4.4 Stress echocardiogram (TTE) exercise with PRN contrast, bubble, strain, and 3D order panel Collection Time: 04/07/25 9:24 AM Result Value Ref Range IVSD 0.8 0.6 - 0.9 cm LVIDD 4.5 3.8 - 5.2 cm LVIDS 3.2 2.2 - 3.5 cm LVPWD 0.6 0.6 - 0.9 cm Relative Wall Thickness ratio 0.27 FS 29 % LV Mass 2D 96 g LVIDD Index 2.88 cm/m2 LVIDS Index 2.05 cm/m2 LV Mass Index 2D 61 g/m2 BSA 1.57 m2 Target HR 132 bpm Exercise/injection duration (min) 5 min Exercise/injection duration (sec) 58 sec Baseline HR 93 bpm Peak HR 141 bpm Estimated workload 7.1 METS Percent HR 91 % Max HR Percent 90 % Baseline SBP 140 mmHg Baseline DBP 70 mmHg Peak SBP 154 mmHg Peak DBP 90 mmHg Rate Pressure Product 21,714.0 mmHg*bpm Recent labs reviewed- Satisfactory EKG NSR Recent stress echo study normal Patient risk is low per RCRI for the proposed surgery Patient medically cleared for the surgery Brittni Escobar MD [1] Current Outpatient Medications: albuterol HFA (PROAIR HFA ; PROVENTIL HFA ; VENTOLIN HFA) 90 mcg/actuation inhaler, INHALE 2 PUFFS INTO THE LUNGS EVERY 4 HOURS NEEDED FOR COUGH OR WHEEZING (Patient taking differently: every 4 (four) hours if needed.), Disp: 8.5 g, Rfl: 1 atorvastatin (LIPITOR) 80 mg tablet, Take 1 tablet (80 mg total) by mouth 1 (one) time each day., Disp: 90 each, Rfl: 0 blood sugar diagnostic (FreeStyle Lite Strips) test strip, Use to test blood sugar twice a day, Disp: 100 each, Rfl: 2 cetirizine (ZyrTEC) 10 mg tablet, TAKE 1 TABLET BY MOUTH DAILY, Disp: 90 tablet, Rfl: 0 fluticasone HFA (FLOVENT HFA) 110 mcg/actuation inhaler, if needed., Disp: , Rfl: FreeStyle Lite Meter monitoring kit, USE TO TEST BLOOD SUGAR TWICE DAILY, Disp: 1 each, Rfl: 0 lancets lancets, Use to test blood sugar twice daily DX E11.9, Disp: 300 each, Rfl: 1 magnesium oxide (MAG-OX) 400 mg magnesium tablet, Take 1 tablet (400 mg total) by mouth 1 (one) time each day., Disp: , Rfl: metFORMIN (GLUCOPHAGE) 500 mg tablet, Take 1 Tablet by mouth 2 times daily (with meals). (Patient taking differently: Take 1 tablet (500 mg total) by mouth 2 (two) times a day with meals. Take 1 Tablet by mouth 2 times daily (with meals).), Disp: 180 tablet, Rfl: 0 PARoxetine (PAXIL) 10 mg tablet, Take 1 tablet (10 mg total) by mouth 1 (one) time each day in the morning., Disp: 30 each, Rfl: 2 riboflavin (VITAMIN B2) 50 mg tablet tablet, Take 1 tablet (50 mg total) by mouth 1 (one) time eachday., Disp: , Rfl: topiramate (TOPAMAX) 25 mg tablet, Take 1 tablet (25 mg total) by mouth 1 (one) time each day if needed., Disp: , Rfl: traMADoL (ULTRAM) 50 mg tablet, Take 1 tablet (50 mg total) by mouth 1 (one) time each day., Disp: , Rfl: [2] Allergies Allergen Reactions Budesonide-Formoterol [3] Patient Active Problem List Diagnosis Arthralgia Asthma Backache Diabetes mellitus without complication ([facility] V24, [facility] V28) GERD (gastroesophageal reflux disease) Hyperlipidemia Migraine Pseudotumor cerebri Recurrent major depressive disorder ([facility] V24) Seasonal allergies Uterovaginal prolapse, incomplete Palpitation [4] Past Medical History: Diagnosis Date Angina pectoris ([facility] V24) Anxiety Arthritis RHUEMATOID Asthma 02/18/2013 DX:Asthma Blindness CATARACTS Depression Esophageal reflux DX:Esophageal reflux GERD (gastroesophageal reflux disease) Heart disease History of colonic polyps Hyperlipidemia 10/06/2012 DX:Hyperlipidemia; COMMENT: Previous pcp [facility] Joint pain Migraine 12/25/2016 DX:Migraine Prolapsed uterus Prolapsed uterus Pseudotumor cerebri 10/06/2012 DX:Pseudotumor cerebri; COMMENT: Melvin Hua from [facility] [place], pseudotumor cerebri controoled on topamax. No retinopathy Saw Dr. Wade on 12/23/16, MRI and MRV of brain at [facility] in September2013 showed mild nonspecific white matter changes, MRV was okay. Continue naproxen for migraine. Palak- neuro Dr beard eyes normal mri Recurrent major depressive disorder (CMS/HCC V24) 05/10/2016 DX:Recurrent major depressive disorder (HCC) Type II or unspecified type diabetes mellitus with unspecified complication, not stated as uncontrolled DX:Type II or unspecified type diabetes mellitus with unspecified complication, not stated as uncontrolled [5] Past Surgical History: Procedure Laterality Date BREAST BIOPSY Right PROCEDURE: BX BREAST; PERC NEEDLE CORE W/IMAG GUID; COMMENT: benign COLONOSCOPY 01/17/13 PROCEDURE: HISTORICAL COLONOSCOPY; COMMENT: adenoma; repeat in 5 yrs LIPOMA RESECTION PROCEDURE: SKIN TISSUE EXCISION(LIPOMA) OTHER SURGICAL HISTORY [6] Family History Problem Relation Name Age of Onset Heart attack Father CAD, diabetes, HTN Diabetes Brother 5 arthritis, asthma Stroke Brother 5 Diabetes Sister 5 Cataracts Mother Dementia Heart attack Mother Blindness Neg Hx glaucoma, macular degeneration, strabismus Breast cancer Neg Hx Colon cancer Neg Hx Ovarian cancer Neg Hx documented in this encounter Plan of Treatment Upcoming Encounters Date Type Department Care Team (Late st Contact Info) Description 04/25/2025 12:30 PM EST Hospital Encounter [facility] OR [address] [place] [phone] Shirley Patiño MD [address] [place] [address] 04/25/2025 12:30 PM EST - 04/25/2025 5:30 PM EST Surgery [facility] OR [address] [place] [phone] Shirley Patiño MD [address] [place] [address] COLPOPEXY VAGINAL INTRAPERITONEAL [35138 (CPT )] 05/12/2025 11:00 AM EST Office Visit Urogynecology [address] [phone] Matilde Sands NP 580 [facility] [address] [place] [address] 05/24/2025 10:00 AM EST Office Visit Orthopedic Surgery - [place] [address] [facility] [address] [place] [phone] Eric Love DPM [address] [facility] [address] [place] [phone] 05/27/2025 10:30 AM EST Appointment [facility] [address] [place] [phone] Danny Boyce MD [address] [facility] [address] [place] [address] 06/06/2025 11:45 AM EST Office Visit Urogynecology [address] [phone] Shirley Patiño MD 580 [facility] [address] [place] [address] 06/22/2025 11:10 AM EST Office Visit [facility] - [address] [place] [phone] Sharyn Dudley NP [address] [place] [address] Dr Patricio [address] [place] [phone] 06/29/2025 10:15 AM EST Office Visit Internal Medicine - [address] [phone] Christa Velasquez NP [address] [place] [address] Scheduled Procedures Name Priority Associated Diagnoses Date/Ti me COLPOPEXY VAGINAL INTRAPERITONEAL Female bladder prolapse Uterovaginal prolapse, incomplete Female cystocele Rectocele Stress incontinence 04/25/2025 12:30 PM EST COLPORRHAPHY ANTERIOR POSTERIOR Female bladder prolapse Uterovaginal prolapse, incomplete Female cystocele Rectocele Stress incontinence 04/25/2025 12:30 PM EST SLING SUBURETHRAL Female bladder prolapse Uterovaginal prolapse, incomplete Female cystocele Rectocele Stress incontinence 04/25/2025 12:30 PM EST CYSTOSCOPY Female bladder prolapse Uterovaginal prolapse, incomplete Female cystocele Rectocele Stress incontinence 04/25/2025 12:30 PM EST HYSTERECTOMY TOTAL ROBOT Female bladder prolapse Uterovaginal prolapse, incomplete Female cystocele Rectocele Stress incontinence 04/25/2025 12:30 PM EST documented as of this encounter Goals Goal Patient Goal Type Associated Problems Recent Progress Patient-Stated? Author Autogenerat ed Goal Care Plan Autogenerated Problem No Lizzie Baird MA Autogenerat ed Goal Care Plan Autogenerated Problem No Shirley Elizabeth documented as of this encounter Visit Diagnoses Diagnosis Uterovaginal prolapse, incomplete- Primary Pre-operative clearance- Primary Unspecified pre-operative examination Urinary incontinence, unspecified type Diabetes mellitus without complication (CMS/HCC V24, [facility] V28) Type II or unspecified type diabetes mellitus without mention of complication, not stated as uncontrolled Hyperlipidemia, unspecified hyperlipidemia type Mild asthma, unspecified whether complicated, unspecified whether persistent Seasonal allergies Allergic rhinitis, cause unspecified Anxiety Anxiety state, unspecified Chronic migraine with aura without status migrainosus, not intractable Female bladder prolapse Uterovaginal prolapse, incomplete Female cystocele Rectocele Stress incontinence Female stress incontinence documented in this encounter Discontinued Medications Medication Sig Discontinue Reason Start Date End Da te Glucerna Hunger Smart liquid DRINK ONE BOTTLE TWICE DAILY Patient Discharge 02/04/2025 04/12/2025 naproxen (NAPROSYN) 500 mg tablet Take 1 tablet (500 mg total) by mouth 1 (one) time each day. Patient Discharge 04/12/2025 documented as of this encounter Orders General Supply Count Last Ordered Date First Or dered Date DISPOSABLE UNDERPADS (CHUX) 1 04/12/2025 documented in this encounter Additional Health Concerns Active Problems Noted Date Diagnosed Date Autogenerated Problem 03/27/2025 Autogenerated Problem 04/11/2025 Assessment Noted Time PHQ-9 Depression Total Score: 0 11/04/20 25 8:58 AM EST documented as of this encounter Care Teams Electronic Systems Technician Relationship Specialty Start Date End Date Brittni Escobar MD [address] [facility] [place] [phone] PCP - General Internal Medicine 02/15/25 documented as of this encounter
--- OUTSIDE RECORDS SUMMARY | 2025-04-13 10:30 | XMS_ITS | Encounter Summary ---
Author Organization [facility] Address [id number] [place] [id number] Care Team Providers Care Hiv Nurse Name Role Phone Brittni Escobar MD Primary Care Provider [phone] Reason for Visit * Reason Comments Pre-op Exam Encounter Details Date Type Department Care Team (Late st Contact Info) Description 04/13/2025 10:30 AM EST Consult Urogynecology [address] [phone] Shirley Patiño MD [address] [place] [address] [address] [place] [address] Stress incontinence (Primary Dx); Female cystocele; Uterovaginal prolapse, incomplete; Rectocele Social History Tobacco Use Types Packs/Day Years [...] Sign Reading Time Taken Comments Blood Pressure 125/64 04/13/2025 10:10 AM EST Pulse 86 04/13/2025 10:10 AM EST Temperature - - Respiratory Rate 14 04/13/2025 10:10 AM EST Oxygen Saturation - - Inhaled Oxygen Concentration - - Weight 55.5 kg (122 lb 6.4 oz) 04/13/2025 10:10 AM EST Height - - Body Mass Index 23.13 04/12/2025 8:58 AM EST documented in this encounter Progress Notes * Shirley Patiño MD - 04/13/2025 10:30 AM EST Schedule a preoperative exam with your primary care physician within 30 days of your surgical date.The paperwork for your Pre- op History & Physical will be FAXED to your primary care physician.You will need an exam, blood work, and an EKG. Please try to book the physical at least two weeks before your surgery; it makes it difficult to obtain all of your results in time for your surgery if later than this. PATIENT INSTRUCTIONS PRIOR TO SURGERY Please read these instructions carefully. Your surgery may be cancelled if you do not follow these instructions. PATIENTS WITHOUT DELAYED STOMACH EMPTYING: You can eat a regular diet on the day before your surgery up until midnight. Light, low-fat meals that are rich in carbohydrates are preferred, as these improve your healing after surgery. In the days before your surgery, we recommend that you drink carbohydrate-rich beverages such as Gatorade, Boost Breeze?? and Clearfast??. It is safe to drink these if you have type 2 diabetes mellitus. Do not to have any solid food to eat after midnight prior to surgery (this includes no gum, mints, smoking). You may drink small amounts (up to 12 oz) of clear liquids up until 3 hours prior to your arrival time. Clear liquids include water, fruit juices without pulp, carbonated beverages (i.e. twin shaquille), clear tea and black coffee, clear broth, popsicles and jello (no milk). We recommend that you drink carbohydrate-rich beverages such as Gatorade, Boost Breeze?? and Clearfast??. It is safe to drink these if you have type 2 diabetes mellitus. No alcohol the day before or day of surgery. PATIENTS WITH DELAYED STOMACH EMPTYING (IF YOU HAVE GASTROPARESIS or ON A GLP-1 AGONIST DRUG*) In the 24 hours before your surgery, you must only drink clear liquids. Clear liquids include water, fruit juices without pulp, carbonated beverages (i.e. twin shaquille), clear tea and black coffee (no milk), clear broth, popsicles and jello. No alcohol the day before or day of surgery. You should not have anything to eat or drink after midnight prior to surgery (this includes no gum,mints, smoking). * PATIENTS ON GLP-1 AGONIST MEDICATIONS FOR DIABETES OR WEIGHT LOSS: If you are taking any of the following medications, stop these medications 10 days before surgery and follow the above diet instructions: Dulaglutide (Trulicity) Exenatide (Byetta) Exenatide extended-release (Bydureon) Liraglutide (Victoza) Lixisenatide (Adlyxin) Semaglutide injection (Ozempic) Semaglutide tablet (Rybelsus) Tirzepatide (Mounjaro) MEDICATIONS: Stop taking aspirin 14 days before surgery Unless your surgeon tells you differently, STOP THESE MEDICATIONS 7 DAYS PRIOR TO SURGERY: ibuprofen (Motrin /Naproxen/Aleve/Advil) vitamin E herbal medications and supplements diet pills ofal-urj-itxqrwa medications Taking acetaminophen (Tylenol) is okay. If you are taking any of the following blood thinning medications, discuss these with your surgeon and your it integration architect or primary care physician: Aspirin Clopidogrel (Plavix) Eliquis (Apixaban) Ticagrelor (Brilinta) Prasugrel (Efficient) Ticlodipine (Ticlid) Warfarin (Coumadin) Dibigatran (Pradaxa) Rivaroxaban (Xarelto) If you stop a blood-thinning medication, ask your surgeon when to resume taking it. PATIENTS WITH DIABETES Do not take morning diabetes medication (pills) on the morning of surgery If you are on insulin, ask your doctor about how to take your insulin on the morning of surgery. If your surgery is delayed, notify the nurse or check-in desk that you have diabetes. If you use inhalers for breathing, use them as needed prior to surgery and bring them to the hospital. For all other medications, you will receive individualized instructions on which medication(s) you should take on the morning of surgery. Oral medications should be taken a couple sips of water. Your doctor may order you medications to take in the preoperative area of the hospital on the day of surgery. These medications are used to improve pain control after surgery, and include: Acetaminophen (Tylenol) Gabapentin (Neurontin) Phenazopyridine (Pyridium) GENERAL Do not wear jewelry, body piercing(s), makeup, nail kiswahili, hairpins, or contacts on the day of surgery. Leave valuables and money at home or with family members. If you have Obstructive Sleep Apnea and use a CPAP/BiPAP machine, bring your mask, tubing, and machine with you on the day of surgery. If you are going home on the day of surgery, a responsible person must drive you home. It is suggested that someone stay with you for 24 hours. A vice president business & corporate development or cabdriver is NOT a responsible caregiver. INFECTION PREVENTION Please notify your doctor if you have any signs of an infection (i.e. fever, severe cough, nasal congestion, pain with urination, abnormal vaginal discharge, etc). Shower the night before surgery AND the morning of surgery with Hibiclens (chlorhexidine) OR Dial antibacterial soap (both available buyx-ugv-[id number] your local drugstore). Wash your body from the neck down, focusing on your abdomen, belly button, groins, and external genitalia. Do not forget to scrub any skin folds and creases. You can use your regular soap after the surgery. No lotions, oils, creams, or powders after your shower. Underarm deodorant is okay. No shaving (abdominal or pubic hair) or douching the day before surgery. Hand washing is extremely important in preventing infection (for both you as the patient and for the caregivers). HOSPITALIZATION Before you leave the hospital, you typically need to be able to eat/drink, urinate, and have your pain controlled with oral medication. Your surgeon or other members of your surgeon's team will discuss any other specific medical issues related to your discharge with you. Your surgeon may order intermittent compression sleeves. These are massaging leg pumps to help prevent blood clots after surgery. It is also very important that you walk as soon as possible and as frequently as possible after surgery. This will help decrease your risk of blood clots, exercise your lungs and speed up your recovery after surgery. If you are admitted to the hospital overnight, you will be given an incentive spirometer, which is a breathing machine that will help make sure that you are taking deep breaths and expanding your lungs while in the hospital. [facility] TEAM At [facility], we have a multidisciplinary team of caregivers that includes resident physicians, nurse practitioners (drawer in stitch bonding machine), physician assistants (PAs), nurses, medical assistants (MAs), patient care nursing assistants (PCNAs), social workers, bilingual patient support caseworker and many others. We allhave different roles and responsibilities but we all are here to help you. If you spend the night in the hospital, a physician from your care team will see you the day after your surgery. At times, scheduling does not permit your surgeon to see you in the hospital the day after surgery. If this occurs, another physician on the urogynecology care team will see you in the hospital. UROGYNECOLOGY POSTOP INSTRUCTIONS ACTIVITY After your procedure, your body has to scar into place. The first 2 weeks are most critical. The focus should be on avoiding pressure within your abdomen - which may disrupt your healing process and weaken your repair. Although common sense and 'listening to your body' will be the most important factors during these upcoming weeks, the following guidelines should be kept in mind: No heavy lifting/pushing/pulling for at least 6 weeks. Do not lift anything more than about 5-10 lbs (such as laundry, groceries, children, or pets), vacuum, push heavy doors or grocery carts, etc. You may walk as much as you'd like. You may climb stairs as tolerated. You may shower. Do not put anything in the vagina for at least 6 weeks after surgery unless otherwise instructed byyour doctor (including tampons, douching, sexual intercourse, etc). No driving while you are taking narcotic pain medication, or until you feel that you are ready and can safely slam the brakes if needed. Avoid sitting or lying in bed for more than 2 hours at a time while you are awake to reduce your risk of blood clots. You may return to work when directed by your physician. Please contact your doctor if you need any return to work letters or medical leave paperwork to be completed. PAIN MANAGEMENT After most procedures, pain tends to be mild or moderate crampy discomfort - usually in the vagina,groin area, buttocks, and lower abdomen. After you go home, you should take the prescribed acetaminophen (Tylenol) and ibuprofen (Motrin) asdirected. We recommend rotating the timing of these medications so that you are taking one of these medications every 3 to 4 hours[address] In this way, you can help prevent pain. After the first 72 hours, you can take these medications as needed. These should be the first medications you use for pain. Applying ice packs to your incisions (abdominal or vulvar/perineal) for 20 minutes as often as needed may also help. Some pain medications can cause constipation so you should take a stool softener (i.e. Colace) or laxative (i.e. Miralax) while you are on these medications (see the following section on constipation). You may have been prescribed an opioid medication, also known as a narcotic pill. This is usually tramadol or oxycodone. You may be familiar with the medication Percocet, which is a combination of oxycodone and acetaminophen. These opiate medications have side effects like nausea or vomiting, consti pation, and sleepiness. You should only take them if your pain is not controlled by ibuprofen and/or acetaminophen. It is important to keep this stronger pain medication safely stored, as it is at great risk of being stolen or misused by family, friends, or even strangers. Please be sure to dispose of leftover pain medication after you have recovered. You may dispose of unused narcotic medications in the trash with an unpleasant substance such as coffee grounds or cat litter. You can also check FDA.gov to assess which medications can be safely flushed down the toilet. CONSTIPATION You may not have a bowel movement for 3-5 days after surgery. This is normal. It is very important to avoid straining with bowel movements. To help prevent constipation and straining after your surgery, you may receive prescriptions to take including the following: Colace (docusate sodium) 100 mg (1 capsule) two times a day Miralax (polyethylene glycol) 17 g (1 measured capful or 1 packet) once a day. If you have not had a bowel movement 3 days after surgery, you may increase the Miralax to two times a day. If you have any discomfort because of the need to have a bowel movement, you may add milk of magnesia or magnesium citrate (available at your local pharmacy without a prescription) at any time. Do not take milk of magnesia or magnesium citrate if you have kidney failure. If you have loose or watery stools, stop taking the medications and call your doctor's office. OTHER MEDICATIONS If you were prescribed vaginal estrogen, you should resume it in 7-10 days after surgery unless youwere instructed otherwise. Please check your discharge instructions about when to resume other medications. WOUND CARE There are dissolvable stitches under your skin that do not need to be removed. There may be skin glue, which will fall off over time. If you have band aids, steri strips (paper tape) or a small gauzecovered by tegaderm (clear tape) over your small abdominal incisions, these may be removed when youshower the day after surgery. Keep any incision clean, dry, and open to the air. Shower daily after surgery. No tub baths until wound is completely healed. If you have any abdominal incisions, wash them daily with a mild antibacterial soap and water. Pat your incision dry with a clean towel. Wash your hands frequently, especially before touching your incision, changing any dressings, afterusing the restroom, and before eating. MILTON CATHETER CARE You may go home with a Milton catheter in your bladder. You will need to follow up for a nurse visitwithin 3-10 days for removal. You will be called by the office to get this appointment. It is important to empty your catheter bag before it gets too full. Keep the catheter tubing free of kinks and Milton bag below the level of your bladder. Keep your genital region and catheter tubing clean. Make sure to complete the course of prescribed nitrofurantoin or methenamine hippurate. These are medications that are used to prevent urinary tract infections (UTIs). BLADDER SYMPTOMS It is very common to feel symptoms of urgency, urinary frequency day and night, and possibly even some urge incontinence, following any pelvic reconstructive surgery. This is often caused by involuntary bladder contractions and usually subsides as your recovery continues. Avoid bladder irritants such as caffeine, alcohol and any type of carbonation if these symptoms occur. You may also develop a bladder infection within 3 months of surgery. Please call our office if you think you have one. WHAT TO EXPECT AT HOME It is normal to feel sore or tired after surgery for 2-4 weeks, but this may sometimes last longer for some patients. It is normal to be very tired during your recovery and to need nap during the daytime. You will likely experience light vaginal bleeding (spotting), on and off for about 6 weeks as your stitches dissolve. You may also have a vaginal discharge that may have a mild odor and can vary in color for up to 6 weeks as the sutures dissolve. The discharge may cause slight vaginal irritation. Rinse with cool water then pat dry and change your pad frequently. If you had a laparoscopic surgery, you may experience gas pain, abdominal swelling, or shoulder pain for 24-72 hours after surgery. A warm shower, heating pad, and/or walking may help. POST-OP VISITS You will have your first postoperative appointment with an associate provider (physician's associate or advanced nurse practitioner) or your surgeon about 2 weeks after surgery. A pelvic exam is typically performed at this visit. Your surgeon will also see you 6-8 weeks after surgery for an in-person office visit. WHEN TO CALL YOUR DOCTOR: If you cannot urinate for 3-5 hours or are only able to urinate small amounts. Fever (>100.4 F or 38.0 C) or chills. Incision problems such as redness, warmth, swelling, or foul-smelling drainage. Severe nausea or persistent vomiting. Bright red vaginal bleeding (soaking >1 pad/hour) Foul smelling vaginal drainage (note that some vaginal discharge is normal) Severe pain not relieved with pain medication. Pain and swelling in your legs, especially if it is only on one side and not the other. Pain with urination, cloudy urine, or foul-smelling urine. Or if you have any other problems or questions. CALL 911 OR GO TO THE EMERGENCY ROOM IF YOU HAVE: shortness of breath, difficulty breathing, or chest pain. UROGYNECOLOGY PHYSICIAN CONTACT INFORMATION Dr. Rhoda Martin Dr. Shirley Patiño Dr. Oscar Arce During normal office hours, you will speak to a member of the Urogynecology team. After hours and on weekends, please ask to be connected to the Urogynecologist ad operations intern. Please DO NOT use [employer] for post-procedure concerns. * Shirley Patiño MD - 04/13/2025 10:30 AM EST UROGYNECOLOGY Established Patient Visit VISIT LOCATION: [place] VISIT DATE: 04/13/2025 Dora Conrad is a 64 y.o. female who presents for follow-up visit for review of urodynamic testing. Symptoms Reported at Last Visit (12/21/24): Ms. Conrad presents today with a primary complaint of symptomatic vaginal bulge for 3 years. In the past year, she started feeling it coming past the opening and it has become more bothersome. She initially noticed some difficulty with urination. Now the difficulty is more pronounced, has tosit for a while, relax her pelvic floor. Reports intermittency of urine stream. She denies pain or bleeding attributable to the prolapse. She relates a history of Urinary frequency due to drinking a lot of water. She reports increased urinary urgency and rushes to avoid accidents. She always wears a liner just in case. She leaks occasionally with coughing, sneezing and laughing. If she coughs and her bladder is full,she will leak. She reports that she experienced intermittent diarrhea. She believes its related to artifical sugarand cinnamon/cloves in her coffee. She had two episodes of fecal urgency. She denies any defecatory dysfunction. She reports history of well controlled diabetes. She has made a lot of changes to her diet to support control. She also has pseudotumor cerebri for which she is followed by a neurologist. She takes Topamax as needed for headaches. Sexual function Sexually active: Not currently active due to other reasons. OBSTETRIC AND GYNECOLOGIC HISTORY: Deliveries: Vaginal: 3 History of third or fourth degree laceration: no Weight of largest baby: 7#15oz Abnormal Pap smear: No Last Pap: 11/20/2021 Prior Pelvic Radiation: no Menopause Yes Hormone Replacement Therapy: denies Type: N/A Any postmenopausal bleeding? denies History Since Last Visit: She reports today that her mixed urinary incontinence symptoms remain stable. She has been managingthis with pads. She remains bothered by pelvic pressure from her prolapse. Past Medical History: Diagnosis Date Angina pectoris (CMS/HCC V24) Anxiety Arthritis RHUEMATOID Asthma 02/18/2013 DX:Asthma [...] 12/23/16, MRI and MRV [facility] at [facility] in September2013 showed mild nonspecific white matter changes, MRV was okay. Continue naproxen for migraine. Drrosen- neuro Dr beard eyes normal mri Recurrent major depressive disorder (CMS/HCC V24) 05/10/2016 DX:Recurrent major depressive disorder (HCC) Type II or unspecified type diabetes mellitus with unspecified complication, not stated as uncontrolled DX:Type II or unspecified type diabetes mellitus with unspecified complication, not stated as uncontrolled Past Surgical History: Procedure Laterality Date BREAST BIOPSY Right PROCEDURE: BX BREAST; PERC NEEDLE CORE W/IMAG GUID; COMMENT: benign COLONOSCOPY 01/17/13 PROCEDURE: HISTORICAL COLONOSCOPY; COMMENT: adenoma; repeat in 5 yrs LIPOMA RESECTION PROCEDURE: SKIN TISSUE EXCISION(LIPOMA) OTHER SURGICAL HISTORY Prior to Admission medications Medication Sig Start Date End Date Taking? Authorizing Provider albuterol HFA (PROAIR HFA ; PROVENTIL HFA ; VENTOLIN HFA) 90 mcg/actuation inhaler INHALE 2 PUFFS INTO THE LUNGS EVERY 4 HOURS NEEDED FOR COUGH OR WHEEZING 03/01/25 Yes Christa Riggs NP atorvastatin (LIPITOR) 80 mg tablet Take 1 tablet (80 mg total) by mouth 1 (one) time each day. 04/08/25 Yes Telly Valdes NP blood sugar diagnostic (FreeStyle Lite Strips) test strip Use to test blood sugar twice a day 02/23/25 Yes Christa Riggs NP cetirizine (ZyrTEC) 10 mg tablet TAKE 1 TABLET BY MOUTH DAILY 11/16/24 Yes Christa Riggs NP fluticasone HFA (FLOVENT HFA) 110 mcg/actuation inhaler if needed. 10/17/23 Yes Historical Provider, FreeStyle Lite Meter monitoring kit USE TO TEST BLOOD SUGAR TWICE DAILY 02/21/25 Yes Keysha Ramos NP lancets lancets Use to test blood sugar twice daily DX E11.9 04/06/25 Yes Telly Valdes NP metFORMIN (GLUCOPHAGE) 500 mg tablet Take 1 Tablet by mouth 2 times daily (with meals). 08/20/24 YesChrista Riggs NP PARoxetine (PAXIL) 10 mg tablet Take 1 tablet (10 mg total) by mouth 1 (one) time each day in the morning. 01/19/25 Yes Pravin Almendarez MD topiramate (TOPAMAX) 25 mg tablet Take 1 tablet (25 mg total) by mouth 1 (one) time each day if needed. 10/03/23 Yes Historical Provider, magnesium oxide (MAG-OX) 400 mg magnesium tablet Take 1 tablet (400 mg total) by mouth 1 (one) timeeach day. Historical Provider, riboflavin (VITAMIN B2) 50 mg tablet tablet Take 1 tablet (50 mg total) by mouth 1 (one) time each day. Historical Provider, traMADoL (ULTRAM) 50 mg tablet Take 1 tablet (50 mg total) by mouth 1 (one) time each day. Historical Provider, atorvastatin (LIPITOR) 40 mg tablet Take 1 tablet (40 mg total) by mouth 1 (one) time each day. 02/15/25 04/08/25 Pravin Almendarez MD Glucerna Hunger Smart liquid DRINK ONE BOTTLE TWICE DAILY Patient not taking: Reported on 04/05/2025 02/04/25 04/12/25 Historical Provider, naproxen (NAPROSYN) 500 mg tablet Take 1 tablet (500 mg total) by mouth 1 (one) time each day. Patient not taking: Reported on 04/05/2025 04/12/25 Historical Provider, Allergies Allergen Reactions Budesonide-Formoterol I have reviewed the [facility] in the electronic medical record, and have updated them as necessary. Shirley Patiño MD Physical exam: Vitals: 04/13/25 1010 BP: 125/64 Pulse: 86 Resp: 14 Constitutional: BMI - Body mass index is 23.13 kg/m??. General - Awake, alert, no acute distress. Head - Normocephalic, Atraumatic. Pulmonary - Normal respiratory effort, Speaking in full sentences comfortably. Abdominal and Pelvic exam from 12/21/24: Abdominal - Soft, Nondistended, Nontender. No rebound or guarding. Surgical scars noted: Infraumbilical laparoscopic Pelvic (a speculum was used for portions of the below exam): External Genitalia: Normal external genitalia, No erythema, No discharge. Urethral Meatus: Normal urethral meatus Urethra: Supine cough stress test negative. Vagina: Atrophic epithelium Prolapse noted (See POP-Q) Cervix: Present Parous and elongated POP-Q: Prolapse Noted: Yes Aa: -0.5 Ba: -1 C: +2 GH: 3.5 PB: 3 TVL: 9 Ap: -2 Bp: -2 D: -2 Levator Ani Tone: Normal and Able to relax Levator Ani Tenderness: {none Bimanual: {Small, mobile, anteverted uterus, No adnexal masses Urodynamic testing was reviewed. My interpretation, as documented below, was discussed with the patient: Uroflow: She voided 278 ml in 1m35 sec with Qmax of 15 ml/s and PVR of 110 ml. Urine flow curve wasintermittent, which suggests obstructed flow. Filling cystometrics: Bladder sensation is normal. Bladder capacity is normal with CORRECTION of 488 ml. There is no detrusor overactivity. There is evidence of urodynamic stress incontinence, with lowest cough/Valsalva leak point pressure of 70 cm H2O at 430 ml. Urethral pressure profile: Maximum urethral closure pressure was 27 cm H2O. Voiding cystometrics: She voided 442 ml in 2m39 sec with Qmax of 6.2 ml/s and Pdet at Qmax of N/A cm H2O. PVR was 41 ml. Voiding mechanism was by abdominal straining. Urine flow curve was intermittent, which suggests obstructed flow. Assessment & Diagnosis: Stress Urinary Incontinence (Stable chronic illness) -Reviewed UDS results and discussed these with Dora. 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 She does not have evidence of detrusor overactivity and demonstrates normal bladder sensation and normal capacity. -We discussed management of her NADYA. She remains interested in surgical management. Given her age and UDS findings, I will proceed with a retropubic MUS approach (will ensure tension free) -Risks, benefits, recovery and alternatives of midurethral sling procedure were reviewed. Risks of vaginally placed mesh were discussed. All questions were answered. Dora would like to proceed. Informed consent was signed. -For now, Dora is interested in receiving more pads for management of her leakage. I have sent an order for incontinence supplies to [facility]. She was also provided with a copy of this order. Pelvic Organ Prolapse (Stable chronic illness) Dora has been bothered by sensation of vaginal bulge and desires surgical management. We discussed the various types of prolapse repair procedures. Given stage 3 uterine prolapse, I recommend a hysterectomy with removal of the uterus and cervix and vaginal vault suspension to the uterosacral ligaments. We also discussed anterior repair to correct her cystocele and posterior repair with perineorrhaphyto correct her rectocele and restore a natural genital hiatus. Risks, benefits, recovery and alternatives of these gulkana tissue prolapse repair procedures were reviewed. All questions were answered. Dora would like to proceed. Informed consent was signed. Plan for oophorectomy/salpingectomy: I explained that after menopause the ovaries continue to produce a small amount of hormones and there may be some benefit to bone health and cardiac health until the age of [age] years old. There is sustained but decreasing benefit until the age of 75. I also counseled the patient that removing the ovaries at the time of surgery would reduce her risk of ovarian cancer. The patient denies any personal or family history of breast or ovarian cancer and she would like to keep her ovaries and we will only plan for removal intraoperatively if there are cysts on the ovaries or if they look abnormal. I also explained that there is some data to suggest that removing the fallopian tubes at the time of surgery may reduce her risk of ovarian cancer, so we plan to remove her fallopian tubes at the time of surgery. Consent discussion: Surgical risks were discussed. Patient understands risks and desires to proceed, consent signed. Risks, benefits and alternatives to surgical management were discussed including but not limited to: bleeding, infection (most commonly UTI), pain, recurrence or non-resolution of symptoms (15% if incontinence procedure, 20% for gulkana tissue repair), urinary retention (1-3% requiring intervention if incontinence procedure), complications from mesh if placed (3% if midurethral sling, 5% if sacrocolpopexy), vaginal scarring causing dyspareunia or pain, risk of prolonged Milton catheterization, damage to surrounding organs, postoperative complications, and changes in bladder and bowel function. Pain control: Acetaminophen 600 mg q6h Ibuprofen 600 mg q6h Oxycodone #5 for BTP Other Medications Colace 100mg BID Miralax daily Labs: H/H: 13.9 Cr: 0.75 A1C: 5.9% Voiding plan: Plan for voiding trial after surgery. Pt counseled that if she fails trial of void, she would go home with milton catheter and return in 3-4 days for another voiding trial. LOS: Possible same day discharge Surgical plan: Robotic TLH/BS (Dr. Rosario) Robotic USLS, AP repair, Retropubic MUS, Cystoscopy (Dr. Patiño) Risk of morbidity, mortality and/or complications of treatment plan: Low I spent a total of 20 minutes on the date of the service, in seeing the patient and performing the following activities: Preparing to see the patient (e.g. reviewing tests) Obtaining and/or reviewingseparately obtained history Counseling and educating the patient, family or caregiver Documenting clinical information in the electronic health record Independently interpreting results (not separately reported) and communicating results to the patient, family or caregiver Shirley Patiño MD Division of Urogynecology 04/13/2025 documented in this encounter Plan of Treatment Upcoming Encounters Date Type Department Care Team (Late st Contact Info) Description 04/25/2025 12:30 PM EST Hospital Encounter [facility] Main OR [address] [place] [phone] Shirley Patiño MD [address] [place] [address] 04/25/2025 12:30 PM EST - 04/25/2025 5:[address] [facility] OR [address] [place] [phone] Shirley Patiño MD [address] [place] [address] COLPOPEXY VAGINAL INTRAPERITONEAL [02054 (CPT )] 05/12/2025 11:00 AM EST Office Visit Urogynecology [address] [phone] Matilde Sands NP 580 [facility] [address] [place] [address] 05/24/2025 10:00 AM EST Office Visit Orthopedic Surgery - [place] [address] [facility] [address] [place] [phone] Eric Love, DPM 175 [facility] [address] [place] [phone] 05/27/2025 10:30 AM EST Appointment [facility] Endoscopy [address] [place] [phone] Danny Boyce MD 299 [facility] [address] [place], [place] [id number] 06/06/2025 11:45 AM EST Office Visit Urogynecology [address] [phone] Shirley Patioñ MD [address] [facility] [address] [place] [address] 06/22/2025 11:10 AM EST Office Visit [facility] [address] [place] [phone] Sharyn Dudley NP [address] [place] [address] Dr [address] [place] [phone] 06/29/2025 10:15 AM EST Office Visit Internal Medicine - [address] [phone] Christa Velasquez NP [address] [place] [address] Scheduled Procedures Name Priority Associated Diagnoses Date/Ti [...] Visit Diagnoses Diagnosis Uterovaginal prolapse, incomplete- Primary Stress incontinence- Primary Female stress incontinence Female cystocele Uterovaginal prolapse, incomplete Rectocele Female bladder prolapse Uterovaginal prolapse, incomplete Female cystocele Rectocele Stress incontinence Female stress incontinence documented in this encounter Orders General Supply Count Last Ordered Date First Or dered Date UROLOGY/INCONTINENCE SUPPLIES 1 04/13/2025 documented in this encounter Additional Health Concerns Active Problems Noted Date Diagnosed Date Autogenerated Problem 03/27/2025 Autogenerated Problem 04/11/2025 Assessment Noted Time PHQ-9 Depression Total Score: 0 04/12/20 25 8:58 AM EST documented as of this encounter Care Teams Hiv Nurse Relationship Specialty Start Date End Date Brittni Escobar MD [address] [place] [phone] PCP - General Internal Medicine 02/15/25 documented as of this encounter
[2025-04-15 10:31] VITALS: BP 140/64; PULSE 90; O2SAT 98; BMI 23.0
--- NOTE | 2025-04-15 10:31 | A.OFFVIS_ITS ---
Vital Signs 04/15/25 10:31 Height 5 ft 1 in Weight 122 lb BMI 23.0 BP 140/64 H Blood Pressure Location Rt brachial Position Sitting Pulse 90 Pulse Source Pulse Oximeter Pulse Oximetry (%) 98 Oxygen Delivery Method Room Air Intake Visit Reasons: 6 mnts f/u appt-Conf Intake Note: Patient presents follow up for migraines. 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: No Accompanied by: Self / Same As Patient Allergies No Known Allergies Allergy (Verified 04/15/25 10:36) Medication List - Last Reconciled 04/15/25 by LOR Montes albuterol sulfate 90 mcg/actuation inhalation atorvastatin (Lipitor) 80 mg PO DAILY cetirizine 10 mg PO DAILY fluticasone propionate 110 mcg/actuation (Flovent HFA) inhalation lancets (FreeStyle Lancets) As directed lovastatin 40 mg PO DAILY magnesium oxide 400 mg PO BEDTIME 30 days metformin 500 mg PO BID kp-bem-opkmo-calcium carb-K1 400 mcg-500 mg calcium-20 mcg (One Daily Women 50 Plus(Vit K)) 1 tab PO DAILY 30 days naproxen 500 mg PO BID PRN 30 days MDD 2 tabs nut.tx.gluc.intol,lac-free,soy (Glucerna Hunger Smart oral liquid) 1 ea PO BID 30 days paroxetine HCl 10 mg PO DAILY riboflavin (vitamin B2) 400 mg PO DAILY 30 days topiramate 25 - 50 mg (1 - 2 x 25 mg) PO BID 30 days tramadol 50 mg PO BID PRN HPI Comments Details: 64-yr-old female presents for f/u visit for headaches. Interval history: Weight loss due to dietary changes- such as cutting out daily forzen pancakes, donuts, added salt, due to HLD and elevated BP, per advsie from her PCP. She is being scheduled for a uterine prolapse and bladder support surgery, which will require 6-8 weeks of recovery with strict weight limit restrictions. Due to this upcoming surgery, she had asked us to refill the nutritional supplement, which we are in the process of ordering. Follow-up cardiology eval, stress test- which was reassuring. They feel her palpitations are likely r/t anxiety s/s. She asks for a recomendation for heand cream due to very dry and bleeding skin- in setting of DM. Pt's vision is stable- only occasional blurry vision. She has some dry eye- now using prescription restasis which has helped better. Last Eye exam did not show papilledema. Though, she may need cataract surgery next year. Denies tinnitus, positional headache. She notes that since learning that she would need to have surgery, she has been having more anxiety and less headaches. Pt states her headaches are better overall. Now just feels a sensation of water in her head at times. She denies recent headaches. Compliant w/ B2 and Mag. Taking Topiramate prn, but when the water sensation increases then she takes it bid scheduled, until that resolves. Also uses Naproxen prn for her arthritic pain, when tramadol is not working as well. Baseline headache characteristics: Ioiw-nw-ybkjlzgj, Throbbing bilateral forehead, temporal, retro-orbital, hagen pad, occipital, neck pain a/w Milder headache is more often in the temples and is associated with photophobia and phonophobia but not nausea or vomiting. More moderate headache is associated with photophobia, phonophobia, dizziness, blurry vision, difficulty concentrating, red eye associated with whooshing tinnitus when lying down. Previous work-up: 09/13/23, HST: AHI 3.1/hr, O2 naidr 82 % (SpO2 < 90% x's 5.4 min, < 88% x's 1 min, average SpO2 93%). 09/16/23, MR/MR head/brain wo/w con: IMPRESSION: 1. No acute intracranial abnormality. 2. Partially empty sella, suspected small bilateral petrous apex cephaloceles, and suggestion of distal transverse sinus stenosis bilaterally, the latter which is poorly assessed on this examination and would be better evaluated on 3D T1-weighted postcontrast sequences and/or MR venogram as clinically warranted. Findings can be correlated clinically for idiopathic intracranial hypertension/pseudotumor cerebri. PFSH Surgical History H/O tubal ligation Family History Mother Diabetes HTN (hypertension) Hyperlipidemia Father Stroke Social History Alcohol intake: never Patient Tobacco Use Status: Never used Tobacco Physical Exam Vital Signs: Last Vital Signs Pulse 90 04/15/25 10:31 BP 140/64 H 04/15/25 10:31 Pulse Ox 98 04/15/25 10:31 Oxygen Delivery Method Room Air 04/15/25 10:31 BMI result Body Mass Index 23.0 Const General: cooperative and no acute distress Orientation/consciousness: patient oriented x3 Resp Effort & Inspection: normal respiratory effort and able to speak in complete sentences Neuro General: patient oriented x3 Cranial nerves: Yes CN's II-XII intact bilaterally Cognition (Neuro): normal cognition Psych Appearance: grossly normal Mental Status: mental status grossly normal Speech and movement: Normal speech and movement present Affect: normal affect Attitude: cooperative Assessment & Plan Assessment & Plan (1) Migraine without aura: Code(s): G43.009 - Migraine without aura, not intractable, without status migrainosus Category: Medical Qualifiers: Intractability: not intractable Status migrainosus presence: without status migrainosus Qualified Code(s): G43.009 - Migraine without aura, not intractable, without status migrainosus (2) IIH (idiopathic intracranial hypertension): Code(s): G93.2 - Benign intracranial hypertension Category: Medical (3) Anxiety: Code(s): F41.9 - Anxiety disorder, unspecified Category: Medical Plan For h/o IIH: 03/03/2024, Brain MRV- normal Brain MRI w/wo- No acute abnormalities. However, signs suggestive of IIH: partially empty sella, suspected small bilateral petrous apex cephaloceles, and suggestion of distal transverse sinus stenosis bilaterally, HST- no evidence for sleep apnea. Pt does have h/o IIH Previously advised pt to undergo LP to assess OP- pt declined LP, as in the past has caused low pressure LYNN. will revisit upon review of MRV. Pt previously did not tolerate daimox Encouraged pt to take topiramate 50mg qam and prn 50mg qhs. However, if she continues to use this prn, she is advised to notify us/opthalmology w/ any vision changes, as IIH can cause irreversible vision loss. Follow-up w/ [facility] as scheduled- no current s/s papilledema. Future considerations: LP and CSF studies. For overall headache management: Continue to optimize good self-care, including but not limited to maintaining a healthy diet, adequate fluid intake, adequate sleep, and engaging in regular p hysical activity. Continue daily MVI and Glucerna supplement d/t recent weight loss, as not eating contributes to her migraine burden. [email or web address] For headache triggers: Track headaches, especially after any treatment regimen changes. [employer] is one of many headache tracking apps. For acute headache treatment: Discussed importance of taking acute medications at the first sign of headache, however stressed importance of avoiding acute medication overuse (especially with combined headache medications). May continue naproxen 500 mg b.i.d. as needed- though hold for upcoming surgery per her urologist. Previous acute migraine medication trials: None other Acute migraine medication contraindications: None at this time For headache prevention medication: Riboflavin 400mg qam Magnesium 400mg qhs Continue topiramate as above. Previous migraine prevention medication trials: Gabapentin: Was not effective after greater than 8 weeks. Migraine prevention medication contraindications: Beta-blockers due to asthma diagnosis. For actute migraine tx: May use Naproxen 440-500mg bid prn- again hold for upcoming surgery. May use Tylenol 650-1000mg every 4-6 hours as needed. For anxiety: Will take the liberty of referring pt to psychotherapy. Note pt has anxiety r/t psychiatry and psychiatric medications- but is open to counseling. Pt to follow-up in 6 months or sooner prn. Medications: Refilled topiramate 25 - 50 mg (1 - 2 x 25 mg) PO BID 120 tabs 11RF 30 days G93.2 - Benign intracranial hypertension naproxen 500 mg PO BID PRN 20 tabs 3RF pain 30 days MDD 2 tabs riboflavin (vitamin B2) 400 mg PO DAILY 30 tabs 11RF 30 days magnesium oxide may hold for loose stools 400 mg PO BEDTIME 30 tabs 11RF 30 days Coding Level of Care Code Est Pt Level 4 (24635) Diagnoses Migraine without aura and without status migrainosus, not intractable G43.009 Intractability: not intractable Status migrainosus presence: without status migrainosus IIH (idiopathic intracranial hypertension) G93.2 Anxiety F41.9
--- OUTSIDE RECORDS SUMMARY | 2025-04-15 11:21 | XMS_ITS | Clinical Summary ---
Author Organization [facility] Address [address] [place] [phone] Phone Care Team Providers Care Equip Tech Name Role Phone Brittni Escobar MD Primary Care Provider [phone] Allergies Active Allergy Reactions Criticality Noted Date Comments Budesonide-Formoterol 10/05/2015 Medications topiramate (TOPAMAX) 25 mg tablet Take 1 tablet (25 mg total) by mouth 1 (one) time each day if needed. 10/03/19 24 Active fluticasone HFA (FLOVENT HFA) 110 mcg/actuation inhaler if needed. 10/17/19 24 Active traMADoL (ULTRAM) 50 mg tablet Take 1 [...] (with meals). 180 tablet 08/21/19 25 Active cetirizine (ZyrTEC) 10 mg tablet TAKE 1 TABLET BY MOUTH DAILY 90 tablet 11/17/19 25 Active PARoxetine (PAXIL) 10 mg tablet Take 1 tablet (10 mg total) by mouth 1 (one) time each day in the morning. 30 each 2 01/20/20 25 Active FreeStyle Lite Meter monitoring kit USE TO TEST BLOOD SUGAR TWICE DAILY 1 each 02/22/20 25 Active albuterol HFA (PROAIR HFA ; PROVENTIL HFA ; VENTOLIN HFA) 90 mcg/actuation inhaler INHALE 2 PUFFS INTO THE LUNGS EVERY 4 HOURS NEEDED FOR COUGH OR WHEEZING 8.5 g 1 03/01/20 25 Active blood sugar diagnostic (FreeStyle Lite Strips) test strip Use to test blood sugar twice a day 100 each 2 02/24/20 25 Active lancets lancetsIndication s:Diabetes mellitus without complication (CMS/[facility] V24, CMS/[facility] V28) Use to test blood sugar twice daily DX E11.9 300 each 1 04/06/20 25 Active atorvastatin (LIPITOR) 80 mg tabletIndications :Hyperlipidemia, unspecified hyperlipidemia type Take 1 tablet (80 mg total) by mouth 1 (one) time each day. 90 each 04/08/20 25 Active multivitamin (MULTIPLE VITAMINS ORAL) Take by mouth. 025 Discontinued(C ost of medication) naproxen (NAPROSYN) 500 mg tablet Take 1 tablet (500 mg total) by mouth 1 (one) time each day. 025 Discontinued(P atient Discharge) lancets lancets Use to test blood sugar twice daily 300 each 09/21/19 25 025 Discontinued(R eorder) Glucerna Hunger Smart liquid DRINK ONE BOTTLE TWICE DAILY 02/05/20 25 025 Discontinued(P atient Discharge) atorvastatin (LIPITOR) 40 mg tablet Take 1 tablet (40 mg total) by mouth 1 (one) time each day. 30 each 5 02/16/20 25 025 Discontinued albuterol HFA (PROAIR HFA ; PROVENTIL HFA ; VENTOLIN HFA) 90 mcg/actuation inhaler INHALE 2 PUFFS INTO THE LUNGS EVERY 4 HOURS NEEDED FOR COUGH OR WHEEZING 8.5 g 2 02/24/20 25 025 Discontinued Hospital, Clinic, or Other Facility Administered Medication Ordered Dose Route Frequency Start Date End Date Status perflutren lipid microsphere (DEFINITY) 1.3 mL in sodium chloride 0.9% 8.7 mL injection 10 mL IV Once in imaging 04/07/2025 04/07/2025 End ed Active Problems Problem Noted Date Diagnosed Date Palpitation 03/09/2025 Assessment & Plan (03/10/2025 1:07 PM EDT): Patient is symptomatic from single noncomplex ectopy atrial ventricular. She will be sent for stress echocardiogram to assess for underlying possible ischemic etiologies for this Uterovaginal prolapse, incomplete 02/08/2025 Migraine 12/25/2016 Overview (03/31/2024): Saw Dr. Wade on 12/23/16, MRI and MRV of brain at [facility] in September 2013 showed mild nonspecific white matter changes, MRV was okay. Continue naproxen for migraine. Recurrent major depressive disorder ([facility] V24 ) 05/10/2016 Overview (03/31/2024): Declines medication, sees counselor Diabetes mellitus without co mplication ([facility] V24, [facility] V28) 07/21/2013 Assessment & Plan (02/15/2025 1:31 PM EDT): Will monitor A1c. She is compliant with her metformin. Orders: Hemoglobin A1c; Future Microalbumin creatinine urine ratio; Future Assessment & Plan (04/29/2024 10:14 AM EST): Diabetic diet discussed. Will monitor A1c. For now continue metformin. Orders: Hemoglobin A1c; Future Asthma 02/18/2013 Arthralgia 10/06/2012 Overview (03/31/2024): Dr el rheum Backache 10/06/2012 GERD (gastroesophageal reflux disease) 3 Hyperlipidemia 10/06/2012 Overview (03/31/2024): [facility] Assessment & Plan (04/29/2024 10:14 AM EST): Follow low-cholesterol diet. Continue lovastatin. Pseudotumor cerebri 10/06/2012 Overview (03/31/2024): Melvin Dr Hua from [facility], pseudotumor cerebri controoled on topamax. No retinopathy Saw Dr. Wade on 12/23/16, MRI and MRV of brain at [facility] in September 2013 showed mild nonspecific white matter changes, MRV was okay. Continue naproxen for migraine. Dr navarrete-neuro Dr beard eyes normal mri Seasonal allergies 10/06/2012 Encounters Date Type Department Care Team Description 04/13/2025 10:30 AM EST Consult Urogynecology [facility] [address] [place] [phone] Shirley Patiño MD Stress incontinence (Primary Dx); Female cystocele; Uterovaginal prolapse, incomplete; Rectocele 04/13/2025 Telephone Urogynecology - [address] [place] [address] Shirley Patiño MD 04/12/2025 9:30 AM EST [facility] [phone] Brittni Escobar MD Pre-operative clearance (Primary Dx); Urinary incontinence, unspecified type; Diabetes mellitus without complication (CMS/HCC V24, CMS/HCC V28); Hyperlipidemia, unspecified hyperlipidemia type; Mild asthma, unspecified whether complicated, unspecified whether persistent; Seasonal allergies; Anxiety; Chronic migraine with aura without status migrainosus, not intractable 04/12/2025 [facility] [phone] Brittni Escobar MD 04/07/2025 8:30 AM EDT Ancillary Procedure [facility] - [facility] [address] [facility] [address] [place] [phone] Chest pain due to myocardial ischemia, unspecified ischemic chest pain type 04/07/2025 Results [facility] [phone] Telly Valdes NP 03/30/2025 3:15 PM EDT Consult Orthopedic Surgery - [place] [address] [facility] [address] [place] [phone] Eric Love, MEMOM Acquired hallux valgus of left foot (Primary Dx); Acquired hallux valgus of right foot; Verruca plantaris; Diabetic mononeuropathy simplex ([facility]/HCC V24, CMS/HCC V28) 03/29/2025 9:30 AM EDT [facility] [phone] Telly Valdes NP Diabetes mellitus without complication (CMS/HCC V24, CMS/HCC V28) (Primary Dx); Hyperlipidemia, unspecified hyperlipidemia type; Elevated blood pressure reading; Palpitation 03/25/2025 Telephone Obstetrics and Gynecology - [address] [phone] Kiersten Rosario DO 03/10/2025 8:50 AM EDT Office Visit [facility] [address] [place] [phone] Ludin DeL a Rosa MD Palpitation (Primary Dx); Chest pain due to myocardial ischemia, unspecified ischemic chest pain type 02/16/2025 10:00 AM EDT Ancillary Procedure [facility] [address] [place] [phone] Palpitations 02/15/2025 1:00 PM EDT Office Visit Internal Medicine - [address] [phone] Pravin Almendarez MD Palpitations (Primary Dx); Anxiety; Diabetes mellitus without complication (CMS/HCC V24, CMS/HCC V28); Family history of colonic polyps; Plantar wart of right foot 02/11/2025 Telephone [facility] [address] [place] [phone] Pravin Almendarez MD 02/11/2025 Telephone Endocrinology - [address] [phone] García Jay MD 02/10/2025 11:00 AM EDT Procedure visit Urogynecology - [place] [address] [place] [address] Matilde Sands NP Low pressure urethral dysfunction (Primary Dx); NADYA (stress urinary incontinence, female); Dysfunctional voiding of urine; Weak urinary stream 01/19/2025 9:15 AM EDT Office Visit Internal Medicine - [address] [place] [phone] Pravin Almendarez MD Palpitations (Primary Dx); Anxiety 01/13/2025 Telephone Urogynecology - [place] [address] [place], [place] [phone] Lizzie Hemphill MA from Last 3 Months Immunizations Immunization Administration Dates Next Due Influenza Quadravalent, MDCK , 0.5ml, preservative free (Flucelvax) 6mo and older 03/12/2023,04/05/2022,04/19/2020,08/03 Influenza trivalent, MDCK, 0 .5mL, preservative free (Flucelvax) 6mo and older 04/29/2024 MMR, measles mumps and rubel la Live (Priorix; M-M-R II) 12mo and older 04/28/1997 PPD Test 10/02/2011 [employer] SARS-CoV-2 COVID-19, mRNA, LNP-S, preservative free 03/02/2021,02/09/2021 [...] benign LIPOMA RESECTION PROCEDURE: SKIN TISSUE EXCISION(LIPOMA) OTHER SURGICAL HISTORY Medical History Medical History Date Comments Type II or unspecified type diabetes mellitus with unspecified complication, not stated as uncontrolled DX:Type II or unspecified t ype diabetes mellitus with unspecified complication, not stated as uncontrolled Esophageal reflux DX:Esophageal reflux Recurrent major depressive d isorder ([facility] V24) 05/10/2016 DX:Recurrent major depressiv e disorder ([facility]) Migraine 12/25/2016 DX:Migraine Hyperlipidemia 10/06/2012 DX:Hyperlipidemi a; COMMENT: Previous [facility] Pseudotumor cerebri 10/06/2012 DX:Pseudotum or cerebri; COMMENT: [facility], pseudotumor cerebri controoled on topamax. No retinopathy Saw Dr. Wade on 12/23/16, MRI and MRV of brain at [facility] in September 2013 showed mild nonspecific white matter changes, MRV was okay. Continue naproxen for migraine. Dr navarrete-neuro Dr beard eyes normal mri Asthma 02/18/2013 DX:Asthma Depression Prolapsed uterus History of colonic polyps GERD (gastroesophageal reflux disease) Angina pectoris ([facility] V24) Heart disease Blindness CATARACTS Prolapsed uterus Anxiety Arthritis RHUEMATOID Joint pain Family History Medical History Relation Name Comments [...] Sexual Orientation Not on file Obstetrics History Para Term AB IAB SAB Ectopic Multiple Livin g Live Births 3 Last Filed Vital Signs Vital Sign Reading Time Taken Comments Blood Pressure 125/64 04/13/2025 10:10 AM EST Pulse 86 04/13/2025 10:10 AM EST Temperature 36.7 C (98 F) 08/09/2024 10:22 AM EST Respiratory Rate 14 04/13/2025 10:10 AM EST Oxygen Saturation 98% 03/10/2025 8:27 AM EDT Inhaled Oxygen Concentration - - Weight 55.5 kg (122 lb 6.4 oz) 04/13/2025 10:10 AM EST Height 154.9 cm (5' 1 ) 04/12/2025 8:58 AM EST Body Mass Index 23.13 04/12/2025 8:58 AM EST Plan of Treatment Upcoming Encounters Date Type Department Care Team (Late st Contact Info) Description 04/25/2025 12:30 PM EST Hospital Encounter [facility] Main OR [address] [place] [phone] Shirley Patiño MD [address] [facility] [address] [place] [address] 04/25/2025 12:30 PM EST - 04/25/2025 5:30 PM EST Surgery [facility] Main OR [address] [place] [phone] Shirley Patiño MD [address] [place] [address] COLPOPEXY VAGINAL INTRAPERITONEAL [[id number] (CPT )] 05/12/2025 11:00 AM EST Office Visit Urogynecology [address] [phone] Matilde Sands NP [address] [place] [address] 05/24/2025 10:00 AM EST Office Visit Orthopedic Surgery [facility] [address] [phone] Eric Love DPM [address] [phone] 05/27/2025 10:30 AM EST Appointment [facility] Endoscopy [address] [place] [phone] Danny Boyce MD [address] [facility] [facility] [address] [place] [address] 06/06/2025 11:45 AM EST Office Visit Urogynecology - [place] [address] [place] [address] Shirley Patiño MD [address] [facility] [address] [place] [address] 06/22/2025 11:10 AM EST Office Visit [facility] - [facility] [address] [place] [phone] Sharyn Dudley NP [address] [place] [address] [address] [place] [phone] 06/29/2025 10:15 AM EST Office Visit Internal Medicine - [address] [phone] Christa Velasquez, ABEL [address] [place] [address] Scheduled Procedures Name Priority Associated Diagnoses Date/Ti [...] Rectocele Stress incontinence 04/25/2025 12:30 PM EST Health Maintenance Due Date Last Done Comments RSV Immunization Adult Patients (1 - Risk 50-74 years 1-dose series) 2009 Zoster Vaccines (1 of 2) 2009 Pneumococcal Vaccine: 50+ Years (2 of 2 - PCV) 12/02/2014 12/02/2013 Medicare Annual Wellness Visit 05/18/2022 Osteoporosis Screening (Bone Density Screening) 05/18/2022 Social Influencers of Health Screening 05/18/2022 Diabetes: Annual Urine Albumin-Creatinine Ratio (uACR) 05/19/2022 04/12/2021 Falls Risk Assessment 2024 Diabetes: Annual Foot Exam 10/16/2024 10/17/2023 Colorectal Cancer Screening: Colonoscopy 01/17/2025 01/18/2020 Diabetes: Annual Retina Eye Exam 01/20/2025 01/21/2024 COVID-19 Vaccine ( season) 2025 03/02/2021, 02/09/2021 Influenza Vaccine (#1) 2025 , 03/12/2023, 04/05/2022, Additional history exists Diabetes: Blood Sugar Control Test (HGBA1C) 10/04/2025 04/05/2025, 05/05/2024, 10/17/2023, Additional history exists Diabetes: Annual GFR (Glomerular Filtration Rate) 04/05/2026 04/05/2025, 01/25/2025, 05/05/2024, Additional history exists Breast Cancer Screening 10/22/2026 10/23/19 25, 04/17/2023, 04/17/2023, Additional history exists Cervical Cancer Screening: HPV 11/20/2026 11/20/2021 Cholesterol Screening (Lipid Panel) 04/05/2030 04/05/2025, 02/15/2025, 10/17/2023, Additional history exists DTaP,Tdap,and Td Vaccines (2 - Td or Tdap) 10/16/2033 10/17/2023 MMR Vaccines Aged Out 04/28/1997 No longer eligi ble based on patient's age to complete this topic Hepatitis C Screening Completed 02/18/2013 Depression Screening Completed 04/12/2025, 10/17/19 HIB Vaccines Aged Out No longer eligi [...] on patient's age to complete this topic Goals Goal Patient Goal Type Associated Problems Recent Progress Patient-Stated? Author Autogenerat ed Goal Care Plan Autogenerated Problem No Lizzie Baird MA Autogenerat ed Goal Care Plan Autogenerated Problem No Shirley Elizabeth Procedures Procedure Name Priority Date/Time Associated Diagnosis Comments STRESS ECHOCARDIOGRAM EXERCISE WITH CONTRAST Routine 04/07/2025 9:24 AM EDT Chest pain due to myocardial ischemia, unspecified ischemic chest pain type LIPID PANEL WITH REFLEX TO DIRECT LDL Routine 04/05/2025 8:54 AM EDT Hyperlipidemia, unspecified hyperlipidemia type COMPREHENSIVE METABOLIC PANEL Routine 04/05/2025 8:54 AM EDT Hyperlipidemia, unspecified hyperlipidemia type HEMOGLOBIN A1C Routine 04/05/2025 8:54 AM EDT Diabetes mellitus without complication (CMS/HCC V24, CMS/HCC V28) CARDIAC HOLTER MONITOR (REPORT GENERATED IN HOUSE) Routine 02/16/2025 9:45 AM EDT Palpitations LIPID PANEL WITH REFLEX TO DIRECT LDL Routine 02/15/2025 12:23 PM EDT Hyperlipidemia, unspecified hyperlipidemia type ASPARTATE AMINOTRANSFERASE Routine 02/15/2025 12:23 PM EDT Hyperlipidemia, unspecified hyperlipidemia type ALANINE AMINOTRANSFERASE Routine 02/15/2025 12:23 PM EDT Hyperlipidemia, unspecified hyperlipidemia type CBC WITH AUTO DIFFERENTIAL Routine 01/25/2025 9:47 AM EDT Palpitations CBC AND DIFFERENTIAL Routine 01/25/2025 9:47 AM EDT Palpitations BASIC METABOLIC PANEL Routine 01/25/2025 9:47 AM EDT Palpitations THYROID STIMULATING HORMONE WITH REFLEX TO FREE T4 AND FREE T3 Routine 01/25/2025 9:47 AM EDT Palpitations MG MAMMO DIGITAL SCREENING W GUZMAN BILAT Routine 10/22/2024 1:28 PM EDT Encounter for screening mammogram for malignant neoplasm of breast DIABETES EYE EXAM Routine 01/21/2024 HM DEPRESSION SCREENING Routine 10/17/2023 DIABETES FOOT EXAM Routine 10/17/2023 HM HPV Routine 11/20/2021 HM URINE ALBUMIN CREATININE RATIO Routine 04/12/2021 COLONOSCOPY Routine 01/18/2020 HEPATITIS C SCREENING Routine 02/18/2013 from Last 3 Months or Most Recently Relevant to Health Maintenance Results * STRESS ECHOCARDIOGRAM EXERCISE WITH CONTRAST (04/07/2025 9:24 AM EDT) IVSD 0.8 0.6 - 0.9 cm CV PACS STRESS LVIDD 4.5 3.8 - 5.2 cm CV PACS STRESS LVIDS 3.2 2.2 - 3.5 cm CV PACS STRESS LVPWD 0.6 0.6 - 0.9 cm CV PACS STRESS Relative Wall Thickness ratio 0.27 CV PACS STRESS FS 29 % CV PACS STRESS LV Mass 2D 96 g CV PACS STRESS LVIDD Index 2.88 cm/m2 CV PACS STRESS LVIDS Index 2.05 cm/m2 CV PACS STRESS LV Mass Index 2D 61 g/m2 CV PACS STRESS BSA 1.57 m2 CV PACS STRESS Target HR 132 bpm CV PACS STRESS Exercise/injec tion duration (min) 5 min CV PACS STRESS Exercise/injec tion duration (sec) 58 sec CV PACS STRESS Baseline HR 93 bpm CV PACS STRESS Peak HR 141 bpm CV PACS STRESS Estimated workload 7.1 METS CV PACS STRESS Percent HR 91 % CV PACS STRESS Max HR Percent 90 % CV PA CS STRESS Baseline SBP 140 mmHg CV PACS STRESS Baseline DBP 70 mmHg CV PACS STRESS Peak SBP 154 mmHg CV PACS STRESS Peak DBP 90 mmHg CV PACS STRESS Rate Pressure Product 21,714.0 mmHg*bpm CV PACS STRESS Anatomical Region Laterality Modality Ultrasound Narrative 04/11/2025 7:42 PM EST Stress ECG was normal. Exercise stress test was performed. Patient reported no symptoms during the stress test. Exercise capacity was average. Normal blood pressure response. Normal wall motion, unchanged from baseline. Left Ventricle Left ventricle cavity size is normal. Wall thickness is normal. Systolic function is normal with an ejection fraction in the 55-70% range. There are no regional LV wall motion abnormalities. Study Details Overall the study quality was adequate. Definity contrast was given to enhance imaging. Study was difficult due to: poor endocardial visualization. Stress Findings A Zafar protocol stress test was performed. Overall, the patient's exercise capacity was average. The patient reached stage 2. Total stress time was 5 min and 58 sec. The test was stopped because the patient experienced fatigue. The patient's hemodynamic response was adequate for diagnosis. Blood pressure demonstrated a normal response. Heart rate demonstrated a normal response. The patient reported no symptoms during the stress test. ECG 64-year-old female with a past medical history significant for palpitations, who was experiencing chest discomfort, in to rule out ischemia. Patient is on atorvastatin. Baseline EKG: Sinus rhythm with ST and T abnormality in lead II and III There were no arrhythmias during stress. There is exacerbation of baseline ST abnormality during stress. There were no arrhythmias during recovery. ST changes returned to baseline during recovery. The result of the stress ECG was negative for ischemia. Echo Post Stress Left ventricular cavity size decreased from baseline. Left ventricular systolic function improved from baseline. Normal wall motion, unchanged from baseline. us Ludin De La Rosa MD CV ECHO PROCEDURES Final Resul t * (ABNORMAL) Lipid panel with reflex to direct LDL (04/05/2025 8:54 AM EDT) Only the most recent of2 resultswithin the time period is included. Cholesterol 317(H) 0 - 200 mg/dL LAB CHEMISTRY METHOD 04/05/2025 1:26 PM EDT [facility] Triglycerides 108 0 - 150 mg/dL LAB CHEMISTRY METHOD 04/05/2025 1:26 PM EDT [facility] HDL 73 >=40 mg/dL LAB CHEMISTRY METHOD 04/05/2025 1:26 PM EDT [facility] LDL Calculated 222(H) 0 - 100 mg/dL LAB CHEMISTRY METHOD 04/05/2025 1:26 PM EDT [facility] Comment:Estimated LDL Calcul ated using equation: Total cholesterol - HDL cholesterol - (Triglycerides/5) VLDL Cholesterol Valentín 21.6 mg/dL LAB CHEMISTRY METHOD 04/05/2025 1:26 PM EDT [facility] Non HDL Chol. (LDL+VLDL) 244(H) <145 mg/dL LAB CHEMISTRY METHOD 04/05/2025 1:26 PM EDT [facility] Chol/HDL Ratio 4.3 0.0 - 4.4 LAB CHEMISTRY METHOD 04/05/2025 1:26 PM EDT [facility] Blood Venous blood specimen / Unknown Venipuncture / Unknown 04/05/2025 8:54 AM EDT 04/05/2025 8:54 AM EDT us Telly Valdes NP LAB BLOOD ORDERABLES Final Res ult [facility] [address] [place] [address], * Hemoglobin A1c (04/05/2025 8:54 AM EDT) [facility] Hemoglobin A1C 5.9 <6.5 % LAB CHEMISTRY METHOD 04/05/2025 1:24 PM EDT [facility] Mean Bld Glu Estim. 123 mg/dL LAB CHEMISTRY METHOD 04/05/2025 1:24 PM [facility] Blood Venous blood specimen / Unknown Venipuncture / Unknown 04/05/2025 8:54 AM EDT 04/05/2025 8:54 AM EDT us Telly Valdes CONSULTING PSYCHIATRIST LAB BLOOD ORDERABLES Final Res ult [facility] [address] [place] [address], [place] [phone] * (ABNORMAL) Comprehensive metabolic panel (04/05/2025 8:54 AM EDT) [facility] Sodium 136 133 - 145 mmol/L LAB CHEMISTRY METHOD 04/05/2025 1:26 PM [facility] Potassium 4.2 3.5 - 5.5 mmol/L LAB CHEMISTRY METHOD 04/05/2025 1:26 PM [facility] Chloride 104 96 - 110 mmol/L LAB CHEMISTRY METHOD 04/05/2025 1:26 PM [facility] CO2 29 21 - 32 mmol/L LAB CHEMISTRY METHOD 04/05/2025 1:26 PM [facility] Anion Gap 3 3 - 11 LAB CHEMISTRY METHOD 04/05/2025 1:26 PM [facility] Glucose 107(H) 70 - 100 mg/dL LAB CHEMISTRY METHOD 04/05/2025 1:26 PM [facility] BUN 13 5 - 25 mg/dL LAB CHEMISTRY METHOD 04/05/2025 1:26 PM [facility] Creatinine 0.75 0.50 - 1.10 mg/dL LAB CHEMISTRY METHOD 04/05/2025 1:26 PM [facility] eGFR 88 >=60 mL/min/1. 73m2 LAB CHEMISTRY METHOD 04/05/2025 1:26 PM [facility] Comment:Calculation based on the Chronic Kidney Disease Epidemiology Collaboration (CKD-EPI) equation refit without adjustment for race. BUN/Creatinine Ratio 17.3 LAB CHEMISTRY METHOD 04/05/2025 1:26 PM [facility] Calcium 9.3 8.5 - 10.5 mg/dL LAB CHEMISTRY METHOD 04/05/2025 1:26 PM [facility] AST (SGOT) 16 10 - 42 unit/L LAB CHEMISTRY METHOD 04/05/2025 1:26 PM [facility] ALT (SGPT) 24 10 - 60 unit/L LAB CHEMISTRY METHOD 04/05/2025 1:26 PM [facility] Alkaline Phosphatase 60 42 - 121 unit/L LAB CHEMISTRY METHOD 04/05/2025 1:26 PM [facility] Total Protein 7.2 6.0 - 8.0 g/dL LAB CHEMISTRY METHOD 04/05/2025 1:26 PM [facility] Albumin 4.0 3.2 - 5.0 g/dL LAB CHEMISTRY METHOD 04/05/2025 1:26 PM [facility] Total Bilirubin 0.4 0.0 - 1.4 mg/dL LAB CHEMISTRY METHOD 04/05/2025 1:26 PM [facility] Blood Venous blood specimen / Unknown Venipuncture / Unknown 04/05/2025 8:54 AM EDT 04/05/2025 8:54 AM EDT us Telly Valdes NP LAB BLOOD ORDERABLES Final Res ult [facility] [address] [place] [address], * CARDIAC HOLTER MONITOR (REPORT GENERATED IN HOUSE) (02/16/2025 9:45 AM EDT) Anatomical Region Laterality Modality Cardiac Diagnost ic Narrative 03/07/2025 7:32 PM EDT [facility]PART[facility] [address], [id number], [place] [address] TEL: FAX: Type of Test: 48 Hour Holter Monitor Date of Test: 02/16/2025 Ordering Provider: Pravin Almendarez MD Reason for Test: Palpitations Findings: 1: Normal Sinus Rhythm with episodes of Sinus Tachycardia. 2: Heart rate range was 58-140 bpm with an average of 85 bpm. Total time in Sinus Tachycardia: 11 hrs 46 mins. 3: Rare PACs and one atrial pair. 4: Occasional PVCs and ventricular ectopy. Rare ventricular trigeminy and one couplet. 5: No significant pause, longest R-R was 1.2 seconds at 5:45 PM. 6: Diary returned with symptoms of palpitations noted. EKG at those times showed Normal Sinus Rhythm, a few episodes of Sinus Tachycardia, and isolated PVCs, VEs, and an episode of ventricular trigeminy. Heart rates were in the range of 81-120 bpm. Pravin Almendarez MD CV [facility] Final Result * Alanine aminotransferase (02/15/2025 12:23 PM EDT) ALT (SGPT) 25 10 - 60 unit/L LAB CHEMISTRY METHOD 02/15/2025 4:30 PM EDT [facility] Blood Venous blood specimen / Unknown Venipuncture / Unknown 02/15/2025 12:23 PM EDT 02/15/2025 12:23 PM EDT Pravin Almendarez MD LAB BLOOD ORDERABLES Alyson l Result [facility] [address] [place] [address], [place] [phone] * Aspartate aminotransferase (02/15/2025 12:23 PM EDT) [facility] AST (SGOT) 23 10 - 42 unit/L LAB CHEMISTRY METHOD 02/15/2025 4:30 PM EDT [facility] Blood Venous blood specimen / Unknown Venipuncture / Unknown 02/15/2025 12:23 PM EDT 02/15/2025 12:23 PM EDT Pravin Almendarez MD LAB BLOOD ORDERABLES Alyson l Result Performing Organization Address [facility]/ZIP Co de Phone Number [facility] [address] [place] [address], [place] [phone] * Thyroid stimulating hormone with reflex to free t4 and free t3 (01/25/2025 9:47 AM EDT) [facility] TSH 2.49 0.40 - 4.00 mcIU/mL LAB CHEMISTRY METHOD 01/25/2025 4:27 PM EDT [facility] Blood Venous blood specimen / Unknown Venipuncture / Unknown 01/25/2025 9:47 AM EDT 01/25/2025 9:47 AM EDT Pravin Almendarez MD LAB BLOOD ORDERABLES Alyson l Result Performing Organization Address City/[facility]/ZIP Co de Phone Number [facility] [address] [place] [address], [place] [phone] * (ABNORMAL) CBC auto differential (01/25/2025 9:47 AM EDT) [facility] WBC 6.9 4.8 - 10.8 K/[facility] LAB HEMETOLOGY METHOD 01/25/2025 12:17 PM EDT [facility] RBC 4.90(H) 3.80 - 4.80 M/[facility] LAB HEMETOLOGY METHOD 01/25/2025 12:17 PM [facility] Hemoglobin 13.9 11.5 - 16.0 g/dL LAB HEMETOLOGY METHOD 01/25/2025 12:17 PM [facility] Hematocrit 42.4 35.0 - 47.0 % LAB HEMETOLOGY METHOD 01/25/2025 12:17 PM [facility] MCV 86.5 79.0 - 98.0 FL LAB HEMETOLOGY METHOD 01/25/2025 12:17 PM [facility] MCH 28.4 27.0 - 32.0 pcg LAB HEMETOLOGY METHOD 01/25/2025 12:17 PM [facility] MCHC 32.8 32.0 - 37.0 g/dL LAB HEMETOLOGY METHOD 01/25/2025 12:17 PM [facility] RDW 13.3 11.0 - 15.0 % LAB HEMETOLOGY METHOD 01/25/2025 12:17 PM [facility] Platelets 390 130 - 400 K/mcL LAB HEMETOLOGY METHOD 01/25/2025 12:17 PM [facility] MPV 9.5 7.0 - 11.0 FL LAB HEMETOLOGY METHOD 01/25/2025 12:17 PM [facility] NRBC 0.0 <1.0 % LAB HEMETOLOGY METHOD 01/25/2025 12:17 PM [facility] NRBC Absolute 0.00 <0.10 K/mcL LAB HEMETOLOGY METHOD 01/25/2025 12:17 PM [facility] Neutrophils Relative 64.9 % LAB HEMETOLOGY METHOD 01/25/2025 12:17 PM [facility] Lymphocytes Relative 16.2 % LAB HEMETOLOGY METHOD 01/25/2025 12:17 PM [facility] Monocytes Relative 5.6 % LAB HEMETOLOGY METHOD 01/25/2025 12:17 PM [facility] Eosinophils Relative 12.3 % LAB HEMETOLOGY METHOD 01/25/2025 12:17 PM [facility] Basophils Relative 0.7 % LAB HEMETOLOGY METHOD 01/25/2025 12:17 PM [facility] Immature Granulocytes Relative 0.3 % LAB HEMETOLOGY METHOD 01/25/2025 12:17 PM [facility] Neutrophils Absolute 4.50 1.50 - 7.00 K/mcL LAB HEMETOLOGY METHOD 01/25/2025 12:17 PM [facility] Lymphocytes Absolute 1.12 1.00 - 5.00 K/mcL LAB HEMETOLOGY METHOD 01/25/2025 12:17 PM [facility] Monocytes Absolute 0.39 0.20 - 1.00 K/mcL LAB HEMETOLOGY METHOD 01/25/2025 12:17 PM [facility] Eosinophils Absolute 0.85(H) 0.00 - 0.50 K/mcL LAB HEMETOLOGY METHOD 01/25/2025 12:17 PM [facility] Basophils Absolute 0.05 0.00 - 0.20 K/mcL LAB HEMETOLOGY METHOD 01/25/2025 12:17 PM [facility] Immature Granulocytes Absolute 0.02 0.00 - 0.03 K/mcL LAB HEMETOLOGY METHOD 01/25/2025 12:17 PM [facility] Blood Venous blood specimen / Unknown Venipuncture / Unknown 01/25/2025 9:47 AM EDT 01/25/2025 9:47 AM EDT us Pravin Almendarez MD LAB BLOOD ORDERABLES Alyson gr Result [facility] [address] [place] [address], [place] [phone] * Basic metabolic panel (01/25/2025 9:47 AM EDT) Sodium 138 133 - 145 mmol/L LAB CHEMISTRY METHOD 01/25/2025 3:24 PM EDT [facility] Potassium 4.8 3.5 - 5.5 mmol/L LAB CHEMISTRY METHOD 01/25/2025 3:24 PM EDT [facility] Chloride 105 96 - 110 mmol/L LAB CHEMISTRY METHOD 01/25/2025 3:24 PM T [facility] CO2 29 21 - 32 mmol/L LAB CHEMISTRY METHOD 01/25/2025 3:24 PM [facility] Anion Gap 4 3 - 11 LAB CHEMISTRY METHOD 01/25/2025 3:24 PM [facility] Glucose 95 70 - 100 mg/dL LAB CHEMISTRY METHOD 01/25/2025 3:24 PM [facility] BUN 15 5 - 25 mg/dL LAB CHEMISTRY METHOD 01/25/2025 3:24 PM [facility] Creatinine 0.83 0.50 - 1.10 mg/dL LAB CHEMISTRY METHOD 01/25/2025 3:[facility] eGFR 78 >=60 mL/min/1. 73m2 LAB CHEMISTRY METHOD 01/25/2025 3:24 PM T [facility] Comment:Calculation based on the Chronic Kidney Disease Epidemiology Collaboration (CKD-EPI) equation refit without adjustment for race. BUN/Creatinine Ratio 18.1 LAB CHEMISTRY METHOD 01/25/2025 3:24 PM [facility] Calcium 9.1 8.5 - 10.5 mg/dL LAB CHEMISTRY METHOD 01/25/2025 3:24 PM [facility] Blood Venous blood specimen / Unknown Venipuncture / Unknown 01/25/2025 9:47 AM EDT 01/25/2025 9:47 AM EDT Pravin Almendarez MD LAB BLOOD ORDERABLES Alyson maile Result [facility] [address] [place] [address], [place] [phone] * MG Mammo Digital Screening w Guzman bilat (10/22/2024 1:28 PM EDT) Anatomical Region Laterality Modality Breast Bilateral Mammography 10/25/2024 7:43 AM EDT Impressions 10/25/2024 7:51 AM EDT No mammographic evidence of malignancy. No suspicious interval change. A negative mammogram in the presence of a clinically suspicious palpable abnormality does not preclude the possibility of malignancy or alter the indications for biopsy. ASSESSMENT: BI-RADS 1: NEGATIVE RECOMMENDATION(S): 1: Routine screening mammogram BILATERAL in 1 year. [facility] [address] [place], [address] -------- FINAL REPORT -------- Dictated By: Kevyn [place] Dictated Date: 10/25/2024 07:43 ET Assigned Physician: Kevyn [place] Reviewed and Electronically Signed By: Kevyn [place] Signed Date: 10/25/2024 07:51 ET Workstation ID: [id number] Transcribed By: Self Edit Transcribed Date: 10/25/2024 07:43 ET Narrative 10/25/2024 7:51 AM EDT EXAM: SCREENING MAMMOGRAPHY, BILATERAL HISTORY: SCREENING. No additional history. COMPARISON: 04/17/23, 11/22/21, 04/06/20, 03/04/19 TECHNIQUE: Synthesized CC and MLO projections of each breast. Tomosynthesis of each breast in the CC and MLO projections. ADDITIONAL IMAGING: None Computer-aided detection was employed with the iCAD ProFound AI 3-D. TISSUE DENSITY: The breasts are heterogeneously dense, which may obscure small masses. (BI-RADS category C) FINDINGS: RIGHT BREAST: No suspicious mass. No suspicious calcification. No distortion. No suspicious change in the region of the biopsy site marker. LEFT BREAST: No suspicious mass. No suspicious calcification. No distortion. No additional suspicious left breast findings Procedure Note Kevyn [place] MD - 10/25/2024 EXAM: SCREENING MAMMOGRAPHY, BILATERAL HISTORY: SCREENING. No additional history. COMPARISON: 04/17/23, 11/22/21, 04/06/20, 03/04/19 TECHNIQUE: Synthesized CC and MLO projections of each breast.Tomosynthesis of each breast in the CC and MLO projections. ADDITIONAL IMAGING: None Computer-aided detection was employed with the Packet[employer] AI 3-D. TISSUE DENSITY: The breasts are heterogeneously dense, which may obscuresmall masses. (BI-RADS category C) FINDINGS: RIGHT BREAST: No suspicious mass. No suspicious calcification. No distortion. Nosuspicious change in the region of the biopsy site marker. LEFT BREAST: No suspicious mass. No suspicious calcification. No distortion. Noadditional suspicious left breast findings IMPRESSION: No mammographic evidence of malignancy. No suspicious interval change. A negative mammogram in the presence of a clinically suspicious palpableabnormality does not preclude the possibility of malignancy or alter theindications for biopsy. ASSESSMENT: BI-RADS 1: NEGATIVE RECOMMENDATION(S): 1: Routine screening mammogram BILATERAL in 1 year. [facility] location[facility] [address], [address] -------- FINAL REPORT -------- Dictated By: Kevyn [place] Dictated Date: 10/25/2024 07:43 ET Assigned Physician: Kevyn [place] Reviewed and Electronically Signed By: Kevyn Welodn Signed Date: 10/25/2024 07:51 ET Workstation ID: [id number] Transcribed By: Self Edit Transcribed Date: 10/25/2024 07:43 ET Pravin Almendarez MD IMG BI PROCEDURES Final R esult * Hm Diabetes Eye Exam (01/21/2024) Diabetes: Annual Retina Eye Exam abstracted us Historical Provider HEALTH MAINTENANCE Final Result * Depression Screening (10/17/2023) [facility] Depression Screening abstracted [facility] Provider HEALTH MAINTENANCE Final Result * Diabetes Foot Exam (10/17/2023) [facility] Diabetes: Annual Foot Exam abstracted [facility] Provider HEALTH MAINTENANCE Final Result * Cervical Cancer Screening: HPV (11/20/2021) [facility] Cervical Cancer Screening: HPV abstracted, negative Result [facility] Provider HEALTH MAINTENANCE Final Result * Urine Albumin Creatinine Ratio (04/12/2021) [facility] Urine Albumin Creatinine Ratio abstracted Result [facility] Provider HEALTH MAINTENANCE Final Result * Colonoscopy (01/18/2020) [facility] Colonoscopy no interpretation , abstracted Anatomical Region Laterality Modality Other Result [facility] Provider HEALTH MAINTENANCE Final Result * Hepatitis C Screening (02/18/2013) [facility] Hepatitis C Screening abstracted Result [facility] Provider HEALTH MAINTENANCE Final Result from Last 3 Months or Most Recently Relevant to Health Maintenance Additional Health Concerns Active Problems Noted Date Diagnosed Date Autogenerated Problem 03/27/2025 Autogenerated Problem 04/11/2025 Insurance [employer] Member Subscriber Plan / Payer (Ef fective 2025-Present) Name:Dora Conrad Relation to Subscriber:Self Name:Dora Conrad Payer ID:[id number] Group ID:[id number] Type:Not on file Address: [place] [address] [address] Care Teams Equip Tech Relationship Specialty Start Date End Date Brittni Escobar MD [address] [facility] [place] [address] PCP - General Internal Medicine 02/15/25
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
--- OUTSIDE RECORDS SUMMARY | 2025-04-15 11:21 | XMS_ITS | Encounter Summary ---
Author Organization [facility] Address [address] [place] [phone] Care Team Providers Care Tube Knitter Name Role Phone Brittni Escobar MD Primary Care Provider Encounter Details Date Type Department Care Team (Late Contact Info) Description 04/07/2025 Results Follow-Up Internal Medicine - [address] [phone] Telly Valdes NP [address] [place] [address] Social History Tobacco Use Types Packs/Day Years [...] on file documented as of this encounter Ordered Prescriptions Prescription Sig Dispense Quantity Refills Last Filled Start Date End Date atorvastatin (LIPITOR) 80 mg tabletIndications:Hy perlipidemia, unspecified hyperlipidemia type Take 1 tablet (80 mg total) by mouth 1 (one) time each day. 90 each 04/08/2025 documented in this encounter Plan of Treatment Upcoming Encounters Date Type Department Care Team (Late Contact Info) Description 04/25/2025 12:30 PM EST Hospital Encounter [facility] Main OR [address] [place] [phone] Shirley Patiño MD [address] [place] [address] [address] [place] [address] 04/25/2025 12:30 PM EST - 04/25/2025 5:30 PM EST Surgery [facility] Main OR [address] [place] [phone] Shirley Patiño MD [address] [place] [address] COLPOPEXY VAGINAL INTRAPERITONEAL [[id number] (CPT )] 05/12/2025 11:00 AM EST Office Visit Urogynecology - [place] [address] [place], [place] [phone] Matilde Sands NP [address] [place] [address] 05/24/2025 10:00 AM EST Office Visit Orthopedic Surgery - [place] [address] [facility] [address] [place] [phone] Eric Love DPM [address] [phone] 05/27/2025 10:30 AM EST Appointment [facility] Endoscopy [address] [place] [phone] Danny Boyce MD 299 [facility] [address] [place] [address] 06/06/2025 11:45 AM EST Office Visit Urogynecology - [place] [address] [place], [place] [phone] Shirley Patiño MD [address] [place] [address] 06/22/2025 11:10 AM EST Office Visit [facility] - [address] [place] [address] Sharyn Dudley NP [address] [place] [address] Dr [address] [place] [phone] 06/29/2025 10:15 AM EST Office Visit Internal Medicine - [address] [phone] Christa Velasquez, ABEL [address] [place] [address] Scheduled Procedures Name Priority Associated Diagnoses Date/Ti [...] Plan Autogenerated Problem No Lizzie Baird MA documented as of this encounter Visit Diagnoses Diagnosis Uterovaginal prolapse, incomplete- Primary Hyperlipidemia, unspecified hyperlipidemia type- Primary Female bladder prolapse Uterovaginal prolapse, incomplete Female cystocele Rectocele Stress incontinence Female stress incontinence documented in this encounter Discontinued Medications Medication Sig Discontinue Reason Start Date End Da te atorvastatin (LIPITOR) 40 mg tablet Take 1 tablet (40 mg total) by mouth 1 (one) time each day. 02/15/2025 04/08/2025 documented as of this encounter Additional Health Concerns Active Problems Noted Date Diagnosed Date Autogenerated Problem 03/27/2025 documented as of this encounter Care Teams Tube Knitter Relationship Specialty Start Date End Date Brittni Escobar MD [address] [facility] [place] [address] PCP - General Internal Medicine 02/15/25 documented as of this encounter
--- OUTSIDE RECORDS SUMMARY | 2025-04-15 11:21 | XMS_ITS | Encounter Summary ---
Author Organization [facility] Address [address] [place] [phone] Care Team Providers Care Audit Spec Name Role Phone Brittni Escobar MD Primary Care Provider [phone] Reason for Visit * Reason Onset Date Comments surgery 04/13/2025 Encounter Details Date Type Department Care Team (Late st Contact Info) Description 04/13/2025 Telephone Urogynecology - [place] [address] [place] [phone] Shirley Patiño MD [address] [place] [address] Social History Tobacco Use Types Packs/Day Years [...] as of this encounter Progress Notes * Janice Najera RN - 04/14/2025 1:55 PM EST Called pt Notified pt that she will be staying over night Pt appreciative of call back Janice Najera RN * Ellie Maldonado - 04/13/2025 1:34 PM EST Pt is calling with questions regarding her upcoming surgery with DrYuan (04/25) she'd like a call back documented in this encounter Plan of Treatment Upcoming Encounters Date Type Department Care Team (Late st Contact Info) Description 04/25/2025 12:30 PM EST Hospital Encounter [facility] Main OR [address] [place] [phone] Shirley Patiño MD [address] [place] [address] 04/25/2025 12:30 PM EST - 04/25/2025 5:30 PM EST Surgery [facility] Main OR [address] [place] [phone] Shirley Patiño MD [address] [place] [address] COLPOPEXY VAGINAL INTRAPERITONEAL [[id number] (CPT )] 05/12/2025 11:00 AM EST Office Visit Urogynecology [address] [phone] Matilde Sands NP [address] [place] [address] 05/24/2025 10:00 AM EST Office Visit Orthopedic Surgery - [place] [address] [phone] Eric Love DPM [address] [phone] 05/27/2025 10:30 AM EST Appointment [facility] Endoscopy [address] [place] [phone] Danny Boyce MD 299 [facility] [address] [place] [address] 06/06/2025 11:45 AM EST Office Visit Urogynecology - [address] [phone] Shirley Patiño MD 580 [facility] [address] [place] [address] 06/22/2025 11:10 AM EST Office Visit [facility] - [facility] [address] [place] [address] Dr Fernandez [address] [place] [phone] Sharyn Dudley NP [address] [place] [address] Dr [address] [place] [phone] 06/29/2025 10:15 AM EST Office Visit Internal Medicine - [address] [phone] Christa Velasquez, ABEL [address] [place] [address] Scheduled Procedures Name Priority Associated Diagnoses Date/Ti [...] documented as of this encounter Care Teams Audit Spec Relationship Specialty Start Date End Date Brittni Escobar MD 305 [facility] [place] [phone] PCP - General Internal Medicine 02/15/25 documented as of this encounter
--- OUTSIDE RECORDS SUMMARY | 2025-04-15 11:21 | XMS_ITS | Encounter Summary ---
Author Organization [facility] Address [address] [place] [address] Care Team Providers Care Tank Truck Mechanic Name Role Phone Brittni Escobar MD Primary Care Provider [phone] Encounter Details Date Type Department Care Team (Late Contact Info) Description 03/25/2025 Telephone Obstetrics and [facility]necology [facility] [address] [place], [place] [phone] Kiersten Rosario DO [address] [place], [place] Social History Tobacco Use Types Packs/Day [...] as of this encounter Progress Notes * Loida Franco - 03/25/2025 10:[address] Rosario is performing a robotic hysterectomy with BSO on 04/25/2025, It's a combo case with Dr. Patiño. I submitted a prior auth request for the code 48064(Robotic hyst with BSO) today VIA fax [facility]. documented in this encounter Plan of Treatment Upcoming Encounters Date Type Department Care Team (Late st Contact Info) Description 04/25/2025 12:30 PM EST Hospital Encounter [facility] [address] [place] [phone] Shirley Patiño MD [address] [place] [address] 04/25/2025 12:30 PM EST - 04/25/2025 5:30 PM EST Surgery [facility] [address] [place] [phone] Shirley Patiño MD [address] [place] [address] COLPOPEXY VAGINAL INTRAPERITONEAL [41039 (CPT )] 05/12/2025 11:00 AM EST Office Visit Urogynecology [address] [phone] Matilde Sands NP [address] [place] [address] 05/24/2025 10:00 AM EST Office Visit Orthopedic Surgery [facility] [address] [facility] [address] [place] [phone] Eric Love, DPM [address] [phone] 05/27/2025 10:30 AM EST Appointment [facility] [address] [place] [phone] Danny Boyce MD [address] [facility] [address] [place] [address] 06/06/2025 11:45 AM EST Office Visit Urogynecology [address] [phone] Shirley Patiño MD [address] [place] [address] 06/22/2025 11:10 AM EST Office Visit [facility] [address] [place] [phone] Sharyn Dudley NP [address] [place] [address] [place] [phone] 06/29/2025 10:15 AM EST Office Visit Internal Medicine - [address] [phone] Christa Velasquez, ABEL [address] [place] [phone] Scheduled Procedures Name Priority Associated Diagnoses Date/Ti [...] PM EST documented as of this encounter Visit Diagnoses Not on filedocumented in this encounter Care Teams Tank Truck Mechanic Relationship Specialty Start Date End Date Brittni Escobar MD [address] [place] [address] PCP - General Internal Medicine 02/15/25 documented as of this encounter
== END 2025-04-15 11:23 | disposition home or self-care (01) ==
LOC: HO.HSMS 09:51
PROVIDERS: PCP Internal Medicine; Visit Provider Nurse Practitioner Family
DX: G43.009 Migraine without aura, not intractable, without status migrainosus (principal); G93.2 Benign intracranial hypertension; F41.9 Anxiety disorder, unspecified
CPT/HCPCS: 99214

== ENCOUNTER → 2025-04-15 09:51 | Outpatient (BNVA) | payer OTHER, SELFPAY | PROVIDERS: PCP Internal Medicine; Visit Provider Nurse Practitioner Family | DX: G43.009 Migraine without aura, not intractable, without status migrainosus (principal); G93.2 Benign intracranial hypertension; F41.9 Anxiety disorder, unspecified | CPT/HCPCS: 99212 ==